=== PATIENT | female | born 1975 | race Caucasian/White ===

== ENCOUNTER 2021-05-14 | Outpatient (REF) | payer BC, SELFPAY | END 2021-05-14 00:01 | disposition home or self-care (01) | LOC: HO.LNP | PROVIDERS: Visit Provider Physician Assistant | DX: Z20.822 Contact with and (suspected) exposure to COVID-19 (principal); R05 Cough; J02.9 Acute pharyngitis, unspecified | CPT/HCPCS: U0003; U0005 ==

== ENCOUNTER 2022-11-05 10:00 | Outpatient (RCR) | payer BC, SELFPAY ==
[2022-11-01 08:05] VITALS: BP 116/59; PULSE 66
--- NOTE | 2022-11-01 08:48 | MHC.PT.EP ---
[facility] [place] Office [place] Office [place] Office [address] Ruben Lua [address] [phone] F: [phone] F: [phone] F: [phone] F: [phone] Physical Therapy Plan of Care Date of Evaluation: Date of Surgery: NA Diagnosis: Vestibular rehab/vertigo Assessment: Adriana is a 47 year old female who is referred to PT for vestibular rehab/ vertigo . She reports of having sudden onset of symptoms of room spinning dizziness about 10 days back. Her symptoms initially got worse and then better. She currently reports of feeling dizzy with walking with head turns. She denies having nausea. On PT examination she presented with intact saccades, smooth pursuit, visual tracking, and negative head thrust. She was positive for upbeating nystagmus in R [place]. She is independent with ADLS and work activities however moves slowly when making turns to avoid dizziness. She would benefit from skilled PT to address the aforementioned impairments and improve tolerance to functional activities. Frequency and Duration: The patient will be seen 2/week for 4 weeks Short Term Goals: Chcf Goals: Patient to be educated on symptoms and indications to return to therapy when needed min 4 weeks. Pt will be negative for nystagmus or reports of vertigo in all diagnostic positions bilaterally to resolution of BPPV in 4 weeks. Patient to be able to functionally move in all planes and directions without provocation of dizziness to show return to PLOF in 4 weeks. Treatment Plan: Modalities to reduce pain, spasms and effusion. Manual therapy to restore motion and function. Therapeutic exercise to improve strength and flexibility. Neuromuscular re-education for posture and balance. Therapeutic activities to return to functional activities of daily living. Electronically signed by: Zuleyka Mensah PT DPT Please sign and return to therapist. Thank you for your referral.
--- NOTE | 2022-12-09 08:29 | MHC.PT.DC ---
[facility] [place] Office [place] Office [place] Office [address] Ruben Lua [address] [phone] F: [phone] F: [phone] F: [phone] F: [phone] Physical Therapy Discharge Report Diagnosis: Vestibular rehab/vertigo Date of Surgery: NA Date of Evaluation: 11/01/22 Date of Discharge: 12/09/22 Treatments to Date: 2 Cancellations to Date: 0 No Shows to Date: Discharge Status: Achieved Goals Improved Function Independent with HEP Discharge Summary: Adriana arrived stating she is feeling better. She reported of feeling off balance for a day after last session however she has been feeling good after. She has had no dizziness since last session. She was assessed in B [place] and B roll test. She was negative for nystagmus and vertigo. Balance was then assessed. She had mod sway with FTEC on airex however had good balance otherwise. She was able to read the chart with DVA however reported of feeling dizzy in the last line. She only presented with mild symptoms of hypofunction. She was therefore sent home with HEP for the same and was advised to return to therapy in case of worsening of symptoms or lack of improvement. Electronically signed by: Zuleyka Mensah PT DPT Please sign and return to therapist. Thank you for your referral.
== END 2022-12-09 08:29 | disposition home or self-care (01) ==
LOC: HO.PT 10:00
PROVIDERS: Visit Provider Otolaryngology
DX: R42 Dizziness and giddiness (principal)
CPT/HCPCS: 95992; 97112; 97161

== ENCOUNTER 2023-11-15 09:50 | Outpatient (AMB) | payer BC, SELFPAY ==
[2023-11-15 10:15] VITALS: BP 126/76; PULSE 74; TEMP 36.8; O2SAT 99; BMI 32.0
--- NOTE | 2023-11-15 10:15 | MHC.OFFWIV ---
Intake Vital Signs 11/15/23 10:15 Height 5 ft 2 in Weight 175 lb BMI 32.0 BP 126/76 Blood Pressure Location Lt brachial Position Sitting Pulse 74 Pulse Source Pulse Oximeter Temp 98.3 F Temp Source Oral Pulse Oximetry (%) 99 Oxygen Delivery Method Room Air Intake Visit Reasons: EP Congestion, Due to cough Chest is hurting Intake Note: pt is here for congestion chest tightness, went to [facility] an was neg for covid and strep Patient Tobacco Use Status: Never used Tobacco Allergies No Known Allergies Allergy (Verified 11/15/23 10:17) Do you need a note to return to daycare/school/sports/work: Yes HPI HPI Comments History of Present Illness Details 48-year-old female who presents for re-evaluation for chest congestion. Patient was recently seen evaluated in the walk-in clinic for sore throat and cough. She tested negative for COVID and strep. Today she felt a little congestion in her chest was unsure if it was due to all the coughing or your if she had something going on with her lungs. Denies any other symptoms such as radiation neck pain or back pain PFSH Social History Patient Tobacco Use Status: Never used Tobacco Physical Exam Vital Signs: Last Vital Signs Temp 98.3 F 11/15/23 10:15 Pulse 74 11/15/23 10:15 BP 126/76 11/15/23 10:15 Pulse Ox 99 11/15/23 10:15 Oxygen Delivery Method Room Air 11/15/23 10:15 BMI result Body Mass Index 32.0 Const General: cooperative, healthy appearing, no acute distress and alert Orientation/consciousness: patient oriented x3 Limitations: no limitations HEENT Head: Yes normal to inspection Ears: hearing grossly normal bilaterally General nose exam: Normal external nose present Resp Effort & Inspection: normal respiratory effort and able to speak in complete sentences Auscultation: clear to auscultation bilaterally Cardio Rate: regular rate Heart sounds: S1 normal heart sound present and S2 normal heart sound present Skin General skin exam: no rashes or lesions noted Neuro General: patient oriented x3 Extrem General: Yes normal to inspection Assessment & Plan Assessment & Plan (1) Chest congestion: Code(s): R09.89 - Other specified symptoms and signs involving the circulatory and respiratory systems Plan: VSs. Exam patient's insulin oriented no acute distress exam unremarkable lung sounds clear to auscultation bilaterally. No concerning findings. Tightness likely musculoskeletal due to cough. Patient will switch to dextromethorphan with guaifenesin. Coding Level of Care Code Est Pt Level 2 (71506) Diagnoses Chest congestion R09.89
== END 2023-11-15 10:55 | disposition home or self-care (01) ==
PROVIDERS: PCP Internal Medicine; Visit Provider Physician Assistant
DX: R09.89 Other specified symptoms and signs involving the circulatory and respiratory systems (principal)
CPT/HCPCS: 99212

== ENCOUNTER 2023-12-06 18:55 | Emergency (ER) | payer BC, SELFPAY ==
--- NOTE | 2023-12-06 | ECG_ITS ---
Test Reason : SYNCOPE Blood Pressure : / mmHG Vent. Rate : 093 BPM Atrial Rate : 093 BPM P-R Int : 148 ms QRS Dur : 082 ms QT Int : 344 ms P-R-T Axes : 058 074 007 degrees QTc Int : 427 ms Normal sinus rhythm Normal ECG No previous ECGs available Referred By: Generic ED Physician Electronically Signed By:TRISTEN COTO MD
--- NOTE | ~2023-12-06 | CT_ITS ---
EXAMINATION: CT ABDOMEN AND PELVIS WITH CONTRAST CLINICAL INFORMATION: Nausea, vomiting and abdominal pain COMPARISON: None available. TECHNIQUE: Multidetector volumetric images were obtained from the superior aspect of the liver through the pubic symphysis following administration 85 mL of Omnipaque 350 intravenous contrast. Sagittal and coronal reformatted images were obtained on the technologist's workstation. Oral contrast: No This CT examination was performed using dose optimization techniques as appropriate, variously including the following: *Automated exposure control *Adjustment of mA and/or kV according to patient size (this includes techniques or standardized protocols for targeted exams where dose is matched to indication/reason for exam; i.e. extremities or head) *Use of iterative reconstruction technique DLP: 808 mGy-cm FINDINGS: LUNG BASES: The visualized lung bases are unremarkable. LIVER, GALLBLADDER, AND BILIARY TREE: The liver is normal in size, shape, and attenuation. No focal hepatic lesion or biliary ductal dilatation is present. Status post cholecystectomy PANCREAS: Unremarkable. SPLEEN: Unremarkable. ADRENAL GLANDS: Unremarkable. KIDNEYS AND URETERS: The kidneys are normal in size, shape, and attenuation. No hydronephrosis, hydroureter, or calculi seen. No perinephric stranding. BLADDER: Unremarkable. GASTROINTESTINAL TRACT: The small bowel are unremarkable. Extensive diverticula seen within the colon without evidence of focal wall thickening or inflammatory stranding to suggest acute diverticulitis. The appendix is unremarkable. ABDOMINAL WALL: There is a small fat-containing left inguinal hernia LYMPH NODES: Normal. VASCULAR: Unremarkable. PELVIC VISCERA: Hypodense nodule within the uterus likely representing fibroid. OSSEOUS STRUCTURES: Unremarkable. CT/CT abdomen pelvis w IV con IMPRESSION: 1. No acute process. 2. Extensive diverticulosis without evidence of acute diverticulitis. 3. Small fat-containing left inguinal hernia.
[2023-12-06 18:58] VITALS: BP 101/58; BP 84/40; PULSE 73; PULSE 81; RESP 16; TEMP 37.1; O2SAT 98; BMI 32.6
[2023-12-06 19:33] LABS: MANUAL DIFF FLAG NO
[2023-12-06 19:34] LABS: Basophils Percent Auto 0.1 % (0-2); Eosinophils Absolute Auto 0.1 X10*3/uL (0.0-0.4); Eosinophils Percent Auto 0.7 % (0-4); Hematocrit 40.9 % (37.0-47.0); Hemoglobin 13.9 g/dl (12.0-16.0); Imm Gran Abs Auto 0.03 X10*3/uL (0.00-0.03); Imm Gran Pct Auto 0.3 % (0.0-0.4); Lymphocytes Absolute Auto 0.5 X10*3/uL (1.2-4.9); Lymphocytes Percent Auto 5.6 % (20-40); Mean Corpuscular Hemoglobin 29.6 pg (27.0-33.0); Mean Corpuscular Volume 87.2 fL (80.0-98.0); Mean Platelet Volume 8.3 fL (9.4-12.3); Monocytes Absolute Auto 0.5 X10*3/uL (0.1-1.2); Monocytes Percent Auto 5.7 % (2-11); Neutrophils Absolute Auto 7.6 x10*3/uL (2.0-8.3); Neutrophils Percent Auto 87.6 % (45-73); Platelet Count 252 X10*3/uL (160-400); Red Blood Count 4.69 X10*6/uL (4.20-5.50); Red Cell Distribution Width 12.5 % (11.0-16.0); White Blood Count 8.6 X10*3/uL (4.8-10.8)
--- NOTE | 2023-12-06 19:37 | ED_ITS ---
HPI - Nausea/Vomiting/Diarrhea General Chief complaint: Syncope Stated complaint: Syncope, vomiting, diarrhea, sinus rhythm Time Seen by Provider: 12/06/23 19:23 History of Present Illness HPI Narrative: Patient is a 48-year-old female with a history of nausea, vomiting, diarrhea for the last several hours. 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 Family member also have similar symptoms. Was laying on the couch when she tries to go to the bathroom sitting on the toilet she got very lightheaded. Then had a syncopal episode. When EMS arrived she had a very lightheaded and then had another episode of syncope. There is no chest pain feels very cold very diaphoretic. The vomiting was mostly food. The diarrhea was mostly brown in color. There is no blood. There is no chest pain. There is no history of diabetes, hypertension, high cholesterol, smoking, mi. No family history of coronary artery disease. Patient is from home. Related Data Home Medications ?Medication ?Instructions ?Recorded ?Confirmed levothyroxine 50 mcg tablet 50 mcg PO DAILY 05/14/21 09/28/22 naproxen 500 mg tablet 500 mg PO BID 11/15/23 sertraline 50 mg tablet 50 mg PO DAILY 11/15/23 Previous Rx's ?Medication ?Instructions ?Recorded ondansetron 4 mg disintegrating 4 mg PO TID PRN nausea and 12/07/23 tablet vomiting 5 days #10 tabs Allergies Allergy/AdvReac Type Severity Reaction Status Date / Time No Known Allergies Allergy Verified 12/06/23 19:13 Review of Systems 2 Review of Systems: Positive nausea vomiting diarrhea Yes all other systems are reviewed and are negative [facility] Past Medical History Attestation statement: The following information was validated with the patient. Social History Social History Patient Tobacco Use Status: Never used Tobacco Smoked in Last 30 Days: No Use of substances other than those prescribed or required for medical reasons: No Advance Directives: No Advance Directives Information Provided: Yes Patient : No Physical Exam 2 Vital Signs: Vital Signs: Last Vital Signs Temp 98.7 F 12/06/23 22:02 Pulse 84 12/06/23 22:02 Resp 16 12/06/23 22:02 BP 139/82 12/06/23 22:02 Pulse Ox 99 12/06/23 22:02 O2 Del Method Room Air 12/06/23 22:02 BMI result Body Mass Index 32.6 Appearance: Alert. Oriented X3. No acute distress. Eyes: Pupils equal, round and reactive to light. ENT: Pharynx normal. Neck: Normal inspection. Neck supple. No lymph nodes noted. No crepitus CVS: Normal heart rate and rhythm. Pulses normal. Normal S1 and S2 Respiratory: No respiratory distress. Breath sounds normal. No Wheezing. No rales Abdomen: Soft and nontender. No rigidity. No distention. good BS x4 Skin: Skin warm and dry. Normal skin color. Normal skin turgor. Extremities: No lower extremity edema. Neurovascular intact to all extremities. No Lacerations. No Rash Neuro: Oriented X 3. No motor deficit. No sensory deficit. Moving all extermities. No slurred speech Medications Administered Discontinued Medications Generic Name Dose Route Start Last Admin Trade Name Freq PRN Reason Stop Dose Admin Sodium Chloride 1,000 mls @ 999 mls/hr 12/06/23 19:45 12/06/23 20:55 Ns IV 12/06/23 20:45 Infused .Q1H1M HOME Infusion Iohexol 85 ml 12/06/23 21:33 12/06/23 21:34 Iohexol 350 Mg/Ml 100 Ml Infus..Btl IV 12/06/23 21:34 85 ml ONCE ONE Administration Ketorolac Tromethamine 15 mg 12/06/23 19:36 12/06/23 19:53 Ketorolac Tromethamine 15 Mg/Ml Vial IVPUSH 12/06/23 19:37 15 mg ONCE ONE Administration Ondansetron HCl 4 mg 12/06/23 19:36 12/06/23 19:53 Ondansetron Hcl 4 Mg/2 Ml Vial IVPUSH 12/06/23 19:37 4 mg ONCE ONE Administration Ondansetron HCl 4 mg 12/06/23 23:33 12/06/23 23:38 Ondansetron Hcl 4 Mg/2 Ml Vial IVPUSH 12/06/23 23:34 4 mg ONCE ONE Administration Medical Decision Making Medical Decision Making [facility] Narrative: My interpretation patient's EKG showed a sinus rhythm heart rate is 90 WI QRS QTC within normal limits is no acute ST segment elevation noted. Patient given IV fluids here in the emergency department. Toradol for pain. Zofran for nausea. Symptomatically feels much improved. Patient's labs showed a normal white count. A slight left shift. Patient's LFTs are normal. Troponin less than 2.7 patient's symptoms started after nausea vomiting diarrhea. Dehydration. Urine showed no signs of infection. CT scan was reviewed by Radiology grossly there has no evidence of obstruction no abscess no perforation. Patient's EKG showed a sinus rhythm heart rate is 90 WI QRS QTC within normal limits is no acute ST segment elevation. In this setting patient's episodes of passing out most likely vasovagal. Will ask patient to hydrate. Close follow-up on an outpatient basis. Zofran for nausea. Tolerated p.o. in the emergency department. Differential Diagnosis Differential Diagnoses: The differential diagnosis associated with the presentation includes Gastroenteritis, vasovagal, syncope, abdominal pathology Admission/Observation Consideration of admission/observation: Escalation of care including admission/observation considered Lab Data MDM Lab Attestation statement: I reviewed the patient's lab results. 12/06/23 19:22 12/06/23 19:22 Labs: Lab Results 12/06/23 12/06/23 Range/Units 19:22 20:47 WBC 8.6 (4.8-10.8) X10*3/uL RBC 4.69 (4.20-5.50) X10*6/uL Hgb 13.9 (12.0-16.0) g/dl Hct 40.9 (37.0-47.0) % MCV 87.2 (80.0-98.0) fL MCH 29.6 (27.0-33.0) pg MCHC 34.0 (31.0-35.0) g/dl RDW 12.5 (11.0-16.0) % Plt Count 252 (160-400) X10*3/uL MPV 8.3 L (9.4-12.3) fL Immature Gran % (Auto) 0.3 (0.0-0.4) % Neut % (Auto) 87.6 H (45-73) % Lymph % (Auto) 5.6 L (20-40) % [place] % (Auto) 5.7 (2-11) % Eos % (Auto) 0.7 (0-4) % Baso % (Auto) 0.1 (0-2) % Lymph # (Auto) 0.5 L (1.2-4.9) X10*3/uL [place] # (Auto) 0.5 (0.1-1.2) X10*3/uL Eos # (Auto) 0.1 (0.0-0.4) X10*3/uL Baso # (Auto) 0.0 (0.0-0.2) X10*3/uL Abs Immat Gran (auto) 0.03 (0.00-0.03) X10*3/uL Absolute Neuts (auto) 7.6 (2.0-8.3) x10*3/uL Absolute Nucleated RBC 0.000 (0.0-0.012) X10*3/uL Nucleated RBC % (auto) 0.0 (0.0-0.2) /100WBC Sodium 141 (135-145) mmol/L Potassium 4.1 (3.3-5.1) mmol/L Chloride 112 H (96-108) mmol/L Carbon Dioxide 22 (22-29) mmol/L Anion Gap 11 L (12-20) BUN 14 (9-16) mg/dL Creatinine 0.67 (0.5-1.4) mg/dL Estim Creat Clear Calc 102.2 Estimated GFR > 60 Random Glucose 146 H (60-115) mg/dL Lactic Acid 1.3 (0.5-2.0) mmol/L Calcium 8.4 (8.4-10.2) mg/dL Total Bilirubin 0.5 (0.0-1.0) mg/dL Direct Bilirubin 0.2 (0.0-0.5) mg/dL AST 19 (5-31) U/L ALT 24 (0-31) U/L Alkaline Phosphatase 76 (39-117) U/L Troponin I High Sens < 2.7 (<3.5-17.0) ng/L Total Protein 6.4 L (6.5-8.0) g/dL Albumin 3.9 (3.5-5.0) g/dL Lipase 32 (8-78) U/L Urine Color Yellow Urine Appearance Clear Urine pH 5.5 (5.0-9.0) Ur Specific [place] 1.010 (1.005-1.025) Urine Protein Negative (Neg-Trace) mg/dL Urine Glucose (UA) Negative (Negative) mg/dL Urine Ketones Negative (Negative) mg/dL Urine Blood Negative (Negative) Urine Nitrite Negative (Negative) Ur Leukocyte Esterase Negative (Negative) Urine RBC 0-2 (0-2) /HPF Urine WBC 0-5 (0-5) /HPF Ur Squamous Epith Cells 0-2 (0-2) /HPF Urine Bacteria None Seen (None Seen) Hyaline Casts 0-2 (0-2) /LPF Urine Test NEGATIVE (NEGATIVE) Influenza Type A (PCR) NEGATIVE (Negative) Influenza Type B (PCR) NEGATIVE (Negative) RSV RNA Qual (PCR) NEGATIVE (Negative) SARS-CoV-2 RNA (RT-PCR) NEGATIVE (Negative) Independent Interpretation I performed an independent interpretation of an: EKG (Sinus heart rate is 90 WI QRS QTC within normal limits is no acute ST segment elevation noted.) and CT Scan (Grossly negative for obstruction) Radiology Impression Discussion of test interpretation with radiology: I have reviewed the radiologist's reading. Independent Historian Clinical information obtained from an independent historian. History obtained from or confirmed by: Spouse Discharge Plan Discharge Clinical Impression: Vasovagal syncope, Gastroenteritis Patient Disposition: Home, Self-Care Instructions: Syncope (ED), Gastroenteritis (DC) Prescriptions: New ondansetron 4 mg tablet,disintegrating 4 mg PO TID PRN (Reason: nausea and vomiting) 5 Days Qty: 10 0RF No Action levothyroxine 50 mcg tablet 50 mcg PO DAILY naproxen 500 mg tablet 500 mg PO BID sertraline 50 mg tablet 50 mg PO DAILY Referrals: Jesús Knott MD [Primary Care Provider] - 12/09/23 Print Language: Czech
[2023-12-06 19:46] LABS: Lactic Acid 1.3 mmol/L (0.5-2.0)
[2023-12-06 19:50] LABS: Alanine Aminotransferase 24 U/L (0-31); Albumin Level 3.9 g/dL (3.5-5.0); Alkaline Phosphatase 76 U/L (39-117); Anion Gap 11 (12-20); Aspartate Amino Transferase 19 U/L (5-31); Bilirubin Direct 0.2 mg/dL (0.0-0.5); Bilirubin Total 0.5 mg/dL (0.0-1.0); Blood Urea Nitrogen 14 mg/dL (9-16); Calcium 8.4 mg/dL (8.4-10.2); Carbon Dioxide 22 mmol/L (22-29); Chloride 112 mmol/L (96-108); Creatinine Clr Calc Pharmacy 102.2; Estimated Glomerular Filt Rate > 60; Glucose Random 146 mg/dL (60-115); Lipase 32 U/L (8-78); Potassium 4.1 mmol/L (3.3-5.1); Sodium 141 mmol/L (135-145); Total Protein 6.4 g/dL (6.5-8.0)
[2023-12-06 19:51] VITALS: BP 119/78; PULSE 90; RESP 16; TEMP 37.1; O2SAT 97
[2023-12-06] MEDS: 0.9 % Sodium Chloride 1,000 ML 999 ML IV (19:53)
[2023-12-06] MEDS: ondansetron HCL 4 MG/2 ML VIAL IVPUSH ×2 (19:53→23:38)
[2023-12-06] MEDS: Ketorolac Tromethamine 15 MG/ML VIAL IVPUSH (19:53)
[2023-12-06 19:58] LABS: Troponin-I High Sensitivity < 2.7 ng/L (<3.5-17.0)
[2023-12-06 20:13] LABS: Influenza A PCR NEGATIVE (Negative); Influenza B PCR NEGATIVE (Negative); Resp Syncy Virus RNA Qual PCR NEGATIVE (Negative); SARS COV2 PCR INHOUSE NEGATIVE (Negative)
[2023-12-06 20:54] LABS: Appearance Urine Clear; Color Urine Yellow; Glucose Urine UA Negative (Negative); Leukocyte Esterase Urine Negative (Negative); Nitrite Urine Negative (Negative); PH 5.5 (5.0-9.0); Urine Blood Negative (Negative); Urine Ketones Negative (Negative); Urine Protein Negative (Neg-Trace)
[2023-12-06 20:55] LABS: UPreg QC Valid YES; Urine Pregnancy NEGATIVE (NEGATIVE)
[2023-12-06 20:56] LABS: Bacteria Urine None Seen (None Seen); Hyaline Casts Urine 0-2 /LPF (0-2); RBC Urine 0-2 /HPF (0-2); Squamous Epithelial Cell Urine 0-2 /HPF (0-2); WBC Urine 0-5 /HPF (0-5)
[2023-12-06 21:15] VITALS: PULSE 88
[2023-12-06 21:16] VITALS: O2SAT 98
[2023-12-06] MEDS: iohexoL 350 MG/ML 100 ML INFUS..BTL 85 ML IV (21:34)
[2023-12-06 22:02] VITALS: BP 139/82; PULSE 84; RESP 16; TEMP 37.1; O2SAT 99
--- NOTE | 2023-12-06 23:31 | PC.NURSE ---
Patient reports feeling nauseous with 1 episode of vomiting. Patient requesting to be medicated. Dr. Webster informed, verbal order received for Zofran 4 mg IV push.
--- NOTE | 2023-12-06 23:39 | PC.NURSE ---
Patient medicated per MAR.
[2023-12-07 01:50] VITALS: BP 129/76; PULSE 89; RESP 16; TEMP 36.8; O2SAT 98
== END 2023-12-07 01:52 | disposition home or self-care (01) ==
PROVIDERS: Emergency Provider Emergency Medicine Emergency Medical Services; PCP Internal Medicine
DX: K52.9 Noninfective gastroenteritis and colitis, unspecified (principal); R55 Syncope and collapse; R11.2 Nausea with vomiting, unspecified; Z03.818 Encounter for observation for suspected exposure to other biological agents ruled out; Z79.899 Other long term (current) drug therapy
CPT/HCPCS: 0241U; 36415; 74177; 80053; 81001; 81025; 82248; 83605; 83690; 84484; 85025; 93005; 96361; 96374; 96376; 99284; 99285; J1885; J2405; Q9967

== ENCOUNTER → 2023-12-06 19:19 | Outpatient (BNV) | payer BC, SELFPAY | PROVIDERS: Emergency Provider Emergency Medicine Emergency Medical Services; PCP Internal Medicine; Visit Provider Internal Medicine Cardiovascular Disease | DX: R55 Syncope and collapse (principal) | CPT/HCPCS: 93010 ==

== ENCOUNTER 2024-12-27 09:07 | Outpatient (REF) | payer BC, SELFPAY ==
--- NOTE | ~2024-12-27 | XR_ITS ---
CLINICAL HISTORY: bilateral knee pain Left knee two views Comparison: None Findings: No acute fracture or dislocation noted. No significant joint effusion identified. Chondrocalcinosis consistent with CPPD. No soft tissue foreign body. Impression: CPPD without acute process Right knee two views Comparison: None Findings: No acute fracture or dislocation noted. No significant joint effusion identified. Chondrocalcinosis consistent with CPPD. No soft tissue foreign body. Impression: CPPD without acute process This document has been electronically signed by: Piter Hale MD on 12/29/2024 19:32:39
--- OUTSIDE RECORDS SUMMARY | 2024-12-27 12:38 | XMS_ITS | Clinical Summary ---
Author Organization [facility] Address [address] [place] [address] Phone Care Team Providers Care Director Of Regional Sales Name Role Phone Jesús Knott MD Primary Care Provider [phone] Allergies Active Allergy Reactions Criticality Noted Date Comments Other Hives 03/25/2017 [place] powder Medications diclofenac (VOLTAREN) 1 % topical [...] CHOLECYSTECTOMY COLONOSCOPY 03/25/2017 PROCEDURE: HISTORICAL COLONOSCOPY; COMMENT: choen colonic diverticulosis and hemorhhoids; repeat in 10 [...] care for your loved ones. For example, child care team lead or elderly care for an older adult? [...] Signed Date: 07/28/2024 11:43 ET Workstation ID: [id number] Transcribed By: Self Edit Transcribed Date: 07/28/2024 [...] None Computer-aided detection was employed with the [employer] AI 3-D. TISSUE DENSITY: There are scattered [...] Signed Date: 07/28/2024 11:43 ET Workstation ID: [id number] Transcribed By: Self Edit Transcribed Date: 07/28/2024 11:36 ET us Self Referral Sppl IMG BI PROCEDURES Final Resul t * Lipid panel with reflex to direct LDL (07/06/2024 11:04 AM EST) Cholesterol 151 0 - 200 mg/dL LAB CHEMISTRY METHOD 07/06/2024 3:23 PM EST [facility] Triglycerides 59 0 - 150 mg/dL LAB CHEMISTRY METHOD 07/06/2024 3:23 PM EST [facility] HDL 75 >=40 mg/dL LAB CHEMISTRY METHOD 07/06/2024 3:23 PM [facility] LDL Calculated 64 0 - 100 mg/dL LAB CHEMISTRY METHOD 07/06/2024 3:23 PM [facility] VLDL Cholesterol Nik 11.8 mg/dL LAB CHEMISTRY METHOD 07/06/2024 3:23 PM [facility] Non HDL Chol. (LDL+VLDL) 76 <145 mg/dL LAB CHEMISTRY METHOD 07/06/2024 3:23 PM [facility] Chol/HDL Ratio 2.0 0.0 - 4.4 LAB CHEMISTRY METHOD 07/06/2024 3:23 PM [facility] Blood Venous blood specimen / Unknown Venipuncture / Unknown 07/06/2024 11:04 AM EST 07/06/2024 11:04 AM EST [facility] BLOOD ORDERABLES Fin al Result [facility] [address] [place] [address], * Pap Smear (01/29/2023) Pap smear no interpretation , abstracted Historical Provider HEALTH MAINTENANCE Final Result from Last 3 Months or Most Recently Relevant to Health Maintenance Insurance [facility] Care Teams Director Of Regional Sales Relationship Specialty Start Date End Date Jesús Knott MD [address] [place] [address] PCP - General 03/18/07
[2024-12-27 13:01] LABS: MANUAL DIFF FLAG NO
[2024-12-27 13:23] LABS: Basophils Percent Auto 0.6 % (0-2); Eosinophils Absolute Auto 0.1 X10*3/uL (0.0-0.4); Eosinophils Percent Auto 1.5 % (0-4); Hemoglobin 13.4 g/dl (12.0-16.0); Lymphocytes Absolute Auto 1.6 X10*3/uL (1.2-4.9); Lymphocytes Percent Auto 33.9 % (20-40); Mean Corpuscular HGB Conc 34.4 g/dl (31.0-35.0); Mean Corpuscular Volume 87.4 fL (80.0-98.0); Mean Platelet Volume 8.7 fL (9.4-12.3); Monocytes Absolute Auto 0.4 X10*3/uL (0.1-1.2); Monocytes Percent Auto 7.4 % (2-11); Neutrophils Absolute Auto 2.7 x10*3/uL (2.0-8.3); Neutrophils Percent Auto 56.6 % (45-73); Platelet Count 299 X10*3/uL (160-400); Red Blood Count 4.46 X10*6/uL (4.20-5.50); Red Cell Distribution Width 12.6 % (11.0-16.0); White Blood Count 4.8 X10*3/uL (4.8-10.8)
[2024-12-27 13:32] LABS: Alanine Aminotransferase 24 U/L (0-31); Albumin Level 4.2 g/dL (3.5-5.0); Alkaline Phosphatase 111 U/L (39-117); Anion Gap 11 (12-20); Aspartate Amino Transferase 22 U/L (5-31); Bilirubin Direct 0.1 mg/dL (0.0-0.5); Bilirubin Total 0.3 mg/dL (0.0-1.0); Blood Urea Nitrogen 11 mg/dL (9-16); Calcium 9.1 mg/dL (8.4-10.2); Carbon Dioxide 26 mmol/L (22-29); Chloride 109 mmol/L (96-108); Cholesterol 162 mg/dL (<200); Estimated Glomerular Filt Rate > 60; Glucose Fasting 92 mg/dL (60-99); HDL Cholesterol 65 mg/dL (>40); LDL Cholesterol Calculated 86 mg/dL (<100); Phosphorus 3.3 mg/dL (2.7-4.5); Potassium 4.1 mmol/L (3.3-5.1); Sodium 142 mmol/L (135-145); Total Protein 6.7 g/dL (6.5-8.0); Triglycerides 58 mg/dL (<150)
[2024-12-27 13:50] LABS: TSH reflex Free T4 1.61 uIU/mL (0.32-4.0); Vitamin D 25-OH Total 32.9 ng/mL (>30)
[2024-12-27 13:54] LABS: Parathyroid Hormone Intact 80.9 pg/mL (8.7-77.1)
[2024-12-27 13:57] LABS: Folate 9.9 ng/mL (> or = 4.0); Vitamin B12 287 pg/mL (200-900)
[2024-12-27 14:07] LABS: Estimated Average Glucose 103 mg/dL; Hemoglobin A1C 119.5172 umol/L; Hemoglobin A1c % 5.2 % (<6.0); Total Hemoglobin (HGBA1C) 3530.9446 umol/L
[2024-12-27 14:14] LABS: Erythrocyte Sedimentation Rate 8 MM/HR (0-20)
[2024-12-28 04:03] LABS: Prolactin 5.6 ng/mL
[2024-12-31 14:43] LABS: Testosterone, Total 15 ng/dL (2-45)
[2024-12-31 15:30] LABS: Estrogen 85 pg/mL
[2025-01-11 18:58] LABS: Progesterone <0.1 ng/mL
== END 2024-12-27 09:08 | disposition home or self-care (01) ==
LOC: HO.HMGCX 09:07
PROVIDERS: PCP Internal Medicine; Visit Provider Physician Assistant Medical
DX: Z76.89 Persons encountering health services in other specified circumstances (principal); H81.10 Benign paroxysmal vertigo, unspecified ear; E55.9 Vitamin D deficiency, unspecified; F32.A Depression, unspecified; F41.9 Anxiety disorder, unspecified; R01.1 Cardiac murmur, unspecified; M72.2 Plantar fascial fibromatosis; M25.561 Pain in right knee; M25.562 Pain in left knee; E03.9 Hypothyroidism, unspecified; E66.811 Obesity, class 1; G56.00 Carpal tunnel syndrome, unspecified upper limb; R51.9 Headache, unspecified; Z00.00 Encounter for general adult medical examination without abnormal findings; Z13.1 Encounter for screening for diabetes mellitus
CPT/HCPCS: 36415; 73564; 80053; 80061; 80076; 82248; 82306; 82607; 82672; 82746; 83036; 83735; 83970; 84100; 84144; 84146; 84403; 84443; 85025; 85652; 86140; 96127

== ENCOUNTER 2024-12-27 09:07 | Outpatient (AMB) | payer BC, SELFPAY ==
--- NOTE | 2024-12-27 09:21 | A.OFFPC_ITS ---
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: No Accompanied by: Spouse Allergies No Known Allergies Allergy (Verified 12/27/24 10:13) Medication List - Last Reconciled 12/27/24 by Marita Rios PA-C levothyroxine 50 mcg PO DAILY sertraline 50 mg PO DAILY Tobacco use date assessed: 12/27/24 Dental Screening Dental Screen Date: 12/27/24 Did you have a dental visit in the last 12 months?: Yes Did you have a dental problem in the last 6 months where you did not have access to dental care?: No Was dental information given to patient?: Patient has dentist HPI establish care HPI Details The patient is a 49-year-old female presenting establish a new primary care provider for a medication refill, blood work, and evaluation for multiple chronic conditions. She is currently managing anxiety and depression with sertraline and has hypothyroidism managed with levothyroxine. The patient reports episodic vertigo and sinus headaches, both of which are managed with [id number] medications as needed. She has a noted vitamin D deficiency. She underwent eye duct surgery previously and is aware of her family history of breast cancer, attending yearly mammography screenings. A colonoscopy was conducted within the past five years. The patient mentions diverticulitis and osteoarthritis of the knee, the latter of which shows a potential need for evaluation. Plantar fasciitis and slight carpal tunnel syndrome are also noted, both managed conservatively. There is a family history of glaucoma. 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 - Reports high activity level with appro ximately 10,000 steps per day. - Lives with her , mentioned freq uent participation in physical activities like pickleball. - Resides close to the medical facility. [facility] Medical History Carpal tunnel syndrome History of mammogram (~06/2024) Hypothyroidism (acquired) Obesity (BMI 30.0-34.9) Bilateral knee pain Plantar fasciitis Heart murmur Establishing care with new doctor, encounter for Anxiety Depression Vitamin D deficiency Surgical History History of colonoscopy Family History Father High cholesterol Mother Breast cancer BP (high blood pressure) Diabetes Social History Housing: House Alcohol intake: current Alcohol intake frequency: holidays/special occasions only Alcohol type: beer and wine Patient Tobacco Use Status: Never used Tobacco e-Cigarette/Vaping Use: Never Used Second Hand Smoke Exposure: No service: No Current occupational status: employed Cognitive needs: No Hearing needs: No Vision needs: No Questionnaire PHQ-9 Over the last 2 weeks, how often have you been bothered by any of the following problems? 1. Little interest or pleasure in doing things: not at all 2. Feeling down, depressed, or hopeless: not at all 3. Trouble falling or staying asleep, or sleeping too much: not at all 4. Feeling tired or having little energy: not at all 5. Poor appetite or overeating: not at all 6. Feeling bad about yourself - or that you are a failure or have let yourself or your family down: not at all 7. Trouble concentrating on things, such as reading the newspaper or watching television: not at all 8. Moving or speaking so slowly that other people could have noticed. Or the opposite - being so fidgety or restless that you have been moving around a lot more than usual: not at all 9. Thoughts that you would be better off or of hurting yourself in some way: not at all Total score: 0 Depression Screening Interpretation: Negative Depression Screening Done: Yes 60433 - PHQ-9 Billing: Yes Source: Developed by Drs. Enmanuel Allan, Mercy Nuñez, Mariano Nguyen and colleagues, with an educational kim from [employer]. Thrive Questionnaire Date Thrive assessed: 12/27/24 I am a: Patient What is your living situation today?: I have a steady place to live Within the past 12 months, did the food you bought not last and you didn't have the money to get more?: Never true Within the past 12 months, did you worry whether your food would run out before you got money to buy more?: Never true Do you have trouble paying for medicines?: No Do you have trouble getting transportation to medical appointments?: No Do you have trouble paying your heating and electricity bill?: No Do you have trouble taking care of your child, family member or friend?: No Do you have trouble with day-to-day activities such as bathing, preparing meals, shopping, managing finances, etc.?: No Are you currently unemployed and looking for a job?: No Are you interested in more education?: No Please select the resources that you would like help with: None THRIVE Score: 0 AUDIT C Alcohol Use Questionnaire (AUDIT-C) 1. How often do you have a drink containing alcohol?: Monthly or less 2. How many drinks containing alcohol do you have on a typical day when you are drinking?: 1 or 2 3. How often do you have six or more drinks on one occasion?: Never Total Score: 1 Score Reviewed/Action Taken: No ANGEL LUIS-7 AMB Questionnaire ANGEL LUIS-7 Date ANGEL LUIS - 7 assessed: 12/27/24 Feeling nervous, anxious, or on edge: 0 = Not at all Not being able to stop or control worryin = Not at all Worrying too much about different things: 0 = Not at all Trouble relaxin = Not at all Being so restless that it is hard to sit still: 0 = Not at all Becoming easily annoyed or irritable: 0 = Not at all Feeling afraid as if something awful might happen: 0 = Not at all Total ANGEL LUIS-7 score (0-4 normal; 5-9 mild; 10-14 moderate; 15-21 severe): 0 Source: Developed by Drs. Enmanuel Allan, Mercy Nuñez, Mariano Nguyen and colleagues, with an educational kim from [employer]. ANGEL LUIS-7 Assessment Billing ANGEL LUIS-7 Assessment Tool: ANGEL LUIS-7 Assessment 10872 Review of Systems Const Details: - Psychiatric: Reports anxiety and depression, managed with sertraline. - Endocrine: Reports hypothyroidism, managed with levothyroxine. - Neurological: Reports episodic vertigo; denies current symptoms. - Head and Neck: Reports sinus headaches during seasonal changes. - Musculoskeletal: Reports plantar fasciitis and knee pain. - Skin: Denies any unusual skin findings or changes. - HEENT: Post eye duct surgery, reports no current issues. - Gastrointestinal: History of diverticulitis; denies any current abdominal pain. - Family History: Positive for breast cancer and glaucoma; no colon cancer reported. Physical exam (Primary Care) Vital Signs: Last Vital Signs Temp 97.8 F 12/27/24 09:32 Pulse 68 12/27/24 09:32 Resp 14 12/27/24 09:32 BP 119/56 L 12/27/24 09:32 Pulse Ox 97 12/27/24 09:32 Oxygen Delivery Method Room Air 12/27/24 09:32 Care Plan Goal for BP management: <130/90 at Goal BMI result Body Mass Index 34.0 BMI Assessment/Plan discussion: High BMI High, discussed plan: lifestyle, weight reduction, dietary, physical activity and alcohol moderation Tobacco/Smoking Status: Tobacco use Status Tobacco use date assessed 12/27/24 12/27/24 09:23 Patient Tobacco Use Status Never used Tobacco 12/27/24 09:23 e-Cigarette/Vaping Use Never Used 12/27/24 10:22 PHQ-9: PHQ-9 Score PHQ-9: Total score 0 12/27/24 09:55 Depression Screening Interpretation: Negative Thrive Assessment: Date of Thrive Assessment Date Thrive assessed 12/27/24 12/27/24 09:23 Const Other: Appearance: Alert. Oriented X3. No acute distress. Head: Normal external exam. Normocephalic. Atraumatic. Eyes: Pupils are equal, round, and reactive to light. Extraocular movements intact. Conjunctiva and sclera normal. Eyelids normal. Post-surgery for blocked ducts, now open and draining properly. Ears: External auditory canal normal. Tympanic membranes normal. Throat: Pharynx normal. Uvula midline. Moist mucous membranes. Neck: Normal inspection. Neck supple. Full range of motion. No adenopathy. Thyroid Normal. No meningeal signs. No neck mass noted. Cardiovascular: Normal heart rate and rhythm. Heart sound normal. Slight murmur noted. Pulses normal throughout. Respiratory: No respiratory distress. Painless inspiration. Breath sounds normal. No wheezes/rales/rhonchi noted. Chest nontender. No accessory muscle usage noted or decreased air movement noted. Abdomen: Soft and nontender. Bowel sounds normal in all 4 quadrants. No distention noted. No organomegaly noted. No visible injury noted. Back: No costovertebral angle tenderness. Full range of motion noted. Skin: Skin warm and dry. Normal skin color. Normal skin turgor. No rashes/lesions/lacerations noted. Extremities: No lower extremity edema. Extremities exhibit normal range of motion. Extremities nontender. Reports plantar fasciitis and knee pain, especially on the right side. Neuro: Oriented X 3. No motor deficit. No sensory deficit. Reflexes normal. Reports history of vertigo, currently not present. Slight carpal tunnel syndrome noted, especially in the right hand. Results Reviewed Results Reviewed: - Labs: Previous labs indicate low vitamin D levels. - Imaging: Colonoscopy performed within the last five years at [facility]. - Screening: Mammogram in June 2023; annual since age 31. - Other Tests: Eye duct surgery performed; no current blockage noted. Coding Level of Care Code New Pt Level 4 (55462) Complex EM visit Add On G2211 Diagnoses Establishing care with new doctor, encounter for Z76.89 BPPV (benign paroxysmal positional vertigo) H81.10 Vitamin D deficiency E55.9 Depression F32.A Anxiety F41.9 Heart murmur R01.1 Plantar fasciitis M72.2 Bilateral knee pain M25.561; M25.562 Hypothyroidism (acquired) E03.9 Obesity (BMI 30.0-34.9) E66.811 Carpal tunnel syndrome G56.00 Additional Codes ANGEL LUIS-7 Assessment Billing - ANGEL LUIS-7 Assessment Tool: ANGEL LUIS-7 Assessment 66542 ([id number]) PHQ-9 - 50339 - PHQ-9 Billing: Yes ([id number]) Assessment & Plan Assessment & Plan (1) Establishing care with new doctor, encounter for: Code(s): Z76.89 - Persons encountering health services in other specified circumstances Category: Medical (2) BPPV (benign paroxysmal positional vertigo): Code(s): H81.10 - Benign paroxysmal vertigo, unspecified ear Category: Medical Plan: Episodic management with meclizine deemed acceptable, no medical prescriptions were deemed necessary. Condition is chronic and stable continue to monitor. (3) Vitamin D deficiency: Code(s): E55.9 - Vitamin D deficiency, unspecified Category: Medical Plan: Vitamin D supplementation and the pursuit of a practical procurement strategy was encouraged. Condition is chronic and stable continue to monitor. (4) Depression: Code(s): F32.A - Depression, unspecified Category: Medical Plan: Continued monitoring and management with sertraline was agreed upon. She maintains regular psychiatric follow-ups in [place] with Dr. Simpson. Will obtain medical records. Condition is chronic and stable continue to monitor. (5) Anxiety: Code(s): F41.9 - Anxiety disorder, unspecified Category: Medical Plan: Continued monitoring and management with sertraline was agreed upon. She maintains regular psychiatric follow-ups in [place] with Dr. Simpson. Will obtain medical records. Condition is chronic and stable continue to monitor. (6) Heart murmur: Code(s): R01.1 - Cardiac murmur, unspecified Category: Medical Plan: Patient possible heart murmur on exam. Will order echocardiogram. Will continue to monitor. (7) Plantar fasciitis: Code(s): M72.2 - Plantar fascial fibromatosis Category: Medical Plan: Conservative approaches validated, avoiding invasive intervention per current patient comfort. Condition is chronic and stable continue to monitor. (8) Bilateral knee pain: Code(s): M25.561 - Pain in right knee; M25.562 - Pain in left knee Category: Medical Plan: X-ray referral for further evaluation of knee pain, given family osteoarthritis history. Condition is chronic and stable continue to monitor. (9) Hypothyroidism (acquired): Code(s): E03.9 - Hypothyroidism, unspecified Category: Medical Plan: Maintained on levothyroxine, with ordered thyroid function test to ensure current dosage sufficiency. Condition is chronic and stable will continue to monitor. (10) Obesity (BMI 30.0-34.9): Code(s): E66.811 - Obesity, class 1 Category: Medical Plan: Patient to improve her diet and exercise regimen. Condition is chronic and stable continue to monitor. (11) Carpal tunnel syndrome: Code(s): G56.00 - Carpal tunnel syndrome, unspecified upper limb Category: Medical Plan: Symptom management with wrist brace continued, with no surgical plans at present. Condition is chronic and stable continue to monitor. Plan Plan Patient was informed and verbally consented to the use of an ambient scribe for clinic note documentation during this visit. 1. Depression And Anxiety Continued monitoring and management with sertraline was agreed upon. She maintains regular psychiatric follow-ups in [place]. 2. Hypothyroidism Maintained on levothyroxine, with ordered thyroid function test to ensure current dosage sufficiency. 3. Vertigo Episodic management with meclizine deemed acceptable, no medical prescriptions were deemed necessary. 4. Sinus Headaches Conformance with Tylenol Sinus for headache relief was affirmed, noting previous sedative reactions. 5. Vitamin D Deficiency Vitamin D supplementation and the pursuit of a practical procurement strategy was encouraged. 6. Osteoarthritis Of The Knee X-ray referral for further evaluation of knee pain, given family osteoarthritis history. 7. Plantar Fasciitis Conservative approaches validated, avoiding invasive intervention per current patient comfort. 8. Carpal Tunnel Syndrome, Slight Symptom management with wrist brace continued, with no surgical plans at present. 9. Glaucoma, Family History Ongoing vigilance supported by awareness of family predisposition. During the visit, we discussed the management of the patient's anxiety and depression with sertraline, which has been effective for her symptoms. We reviewed her thyroid management on levothyroxine, planning for blood tests to ensure adequate control of her thyroid function. For her vertigo, [id number] meclizine continues to be suitable. Sinus headaches are tolerated with Tylenol Sinus, avoiding stronger medications due to sedation concerns. The patient was informed about maintaining Vitamin D supplementation. We agreed on ordered x-rays to assess knee osteoarthritis further, given familial history. Current management of plantar fasciitis with inserts and cream was agreeable, deferring injections. Slight carpal tunnel syndrome remains managed with conservative measures, without current surgical intervention. We acknowledged her family history of glaucoma, incorporating regular eye assessments into her health maintenance strategy. Orders: Orders Complete Blood Count Auto Diff Today Z00.00 - Encounter for general adult medical examination without abnormal findings Comprehensive [place]. Panel Fast Today Z00.00 - Encounter for general adult medical examination without abnormal findings Magnesium Today Z00.00 - Encounter for general adult medical examination without abnormal findings Hemoglobin A1c Today Z00.00 - Encounter for general adult medical examination without abnormal findings Lipid Panel Today Z00.00 - Encounter for general adult medical examination without abnormal findings Liver Panel Today Z00.00 - Encounter for general adult medical examination without abnormal findings Vitamin D 25-OH Total Today Z00.00 - Encounter for general adult medical examination without abnormal findings Vitamin B12 and Folate Today Z00.00 - Encounter for general adult medical examination without abnormal findings TSH reflex Free T4 Today Z. - Encounter for general adult medical examination without abnormal findings Parathyroid Hormone Intact Today Z. - Encounter for general adult medical examination without abnormal findings Phosphorus Today Z. - Encounter for general adult medical examination without abnormal findings Progesterone Today Z. - Encounter for general adult medical examination without abnormal findings C Reactive Protein Today Z. - Encounter for general adult medical examination without abnormal findings Erythrocyte Sedimentation Rate Today Z. - Encounter for general adult medical examination without abnormal findings Estrogen Today Z. - Encounter for general adult medical examination without abnormal findings Prolactin Today Z. - Encounter for general adult medical examination without abnormal findings Testosterone, Total Today Z. - Encounter for general adult medical examination without abnormal findings CA echo transthoracic complete Today R01.1 - Cardiac murmur, unspecified XR Knee Herbie 4V Today M25.561 - Pain in right knee, M25.562 - Pain in left knee Medications: New levothyroxine 50 mcg PO DAILY 90 tabs 1RF sertraline 50 mg PO DAILY 90 tabs 1RF cholecalciferol (vitamin D3) 50 mcg PO DAILY 90 caps 1RF E55.9 - Vitamin D deficiency, unspecified Patient Instructions: - Continue taking sertraline and levothyroxine as directed. - Use meclizine [id number] as needed for vertigo. - Take Tylenol Sinus for headache relief due to seasonal changes. - Ensure adequate vitamin D intake; try [id number] supplements if needed. - Wear shoe inserts for foot support and use cream for plantar fasciitis as required. - Use wrist brace for carpal tunnel symptoms; surgery is not needed now. - Undergo ordered x-rays for knee pain to check for arthritis. - Have regular eye check-ups for glaucoma monitoring. - Follow up in six months for routine evaluation, unless advised otherwise.
[2024-12-27 09:32] VITALS: BP 119/56; PULSE 68; RESP 14; TEMP 36.6; O2SAT 97; BMI 34.0
--- OUTSIDE RECORDS SUMMARY | 2024-12-27 09:57 | XMS_ITS | Clinical Summary ---
Author Organization [facility] Address [address] [place] [address] Phone Care Team Providers Care Seat Builder Name Role Phone Jesús Knott MD Primary Care Provider [phone] Allergies Active Allergy Reactions Criticality Noted Date Comments Other Hives 03/25/2017 [place] powder Medications diclofenac (VOLTAREN) 1 % topical gel Apply 4 g topically. 10/01/2023 Active cholecalciferol (VITAMIN D-3) 50 mcg (2,000 unit) tablet Take 1 tablet (2,000 Units total) by mouth 1 (one) time each day. 08/11/2023 Active hydrOXYzine HCL (ATARAX) 25 mg tablet Take 1 tablet (25 mg total) by mouth 3 (three) times a day if needed. 06/02/2023 Active sertraline (ZOLOFT) 50 mg tablet Take 1 tablet (50 mg total) by mouth 1 (one) time each day. 90 each 3 07/12/2024 Active levothyroxine (SYNTHROID, LEVOTHROID) 50 mcg tablet Take 1 tablet (50 mcg total) by mouth 1 (one) time each day. 90 each 3 07/12/2024 5 Active Active Problems Problem Noted Date Diagnosed Date Class 1 obesity due to exces s calories without serious comorbidity with body mass index (BMI) of 31.0 to 31.9 in adult 06/09/2024 Anxiety and depression 03/26/2023 Right carpal tunnel syndrome 01/09/2023 Overview (06/09/2024): Mild and early, confirmed by EMG 2022 Diverticulitis of large inte cassandra without perforation or abscess without bleeding 01/11/2017 Overweight 05/08/2016 Hypothyroidism 05/08/2016 Immunizations Name Administration Dates Next Due Tdap Tetanus diptheria acell ular pertussis (Boostrix; Adacel) 7yo and older 02/08/2015 Surgical History Surgery Date Site/Laterality Comments APPENDECTOMY PROCEDURE: HISTORICAL APPENDECTOMY CHOLECYSTECTOMY PROCEDURE: HISTORICAL CHOLECYSTECTOMY COLONOSCOPY 03/25/2017 PROCEDURE: HISTORICAL COLONOSCOPY; COMMENT: cohen colonic diverticulosis and hemorhhoids; repeat in 10 yrs Medical History Medical History Date Comments Hypothyroid DX:Hypothyroid Diverticulosis DX:Diverticulosi s Family History Medical History Relation Name Comments Other: cerebral palsy Brother Other: sleep apnea Father Breast cancer Maternal Great-Grandmother Breast cancer Mother age 40 Diabetes Mother Other: sleep apnea Mother Relation Name Status Comments Brother Father Maternal Great-Grandmother Alive Mother Social History Tobacco Use Types Packs/Day Years Used Date Smoking Tobacco: Never Smokeless Tobacco: Never Alcohol Use Standard Drinks/Week Comments Yes 0 (1 standard drink = 0.6 oz pur e alcohol) Housing Instability Answer Date Recorde d Are you worried that in the next 2 months you may not have stable housing? No 07/09/2024 Food Access & Nutrition Answer Date Rec orded Do you have access to a vari ety of food including fruits and vegetables? Yes 07/09/2024 Access to Healthcare Answer Date Record ed Within the last 3 months, ho w many times did you visit the emergency department for your medical care? 0 07/09/2024 Health Literacy Answer Date Recorded How often do you need to hav e someone help you when you read instructions, pamphlets, or other written material from your doctor or pharmacy? Never 07/09/2024 Caregiver: How often do you need to have someone help you when you read instructions, pamphlets, or other written material from your doctor or pharmacy? Not on file 07/09/2024 Financial Risk Answer Date Recorded How hard is it for you to pa y for the very basics like food, housing, medical care, and air conditioning / heating? Not very hard 07/09/2024 Transportation Answer Date Recorded Has the lack of transportati on kept you from meetings, work, or from getting things needed for daily living? No Has the lack of transportati on kept you from medical appointments or from getting medications? No 07/09/2024 Social Isolation Answer Date Recorded How often do you feel lonely or isolated from th ose around you? Never 07/09/2024 Food Risk Answer Date Recorded Within the past 12 months we worried whether our food would run out before we got money to buy more. Never true 07/09/2024 Within the past 12 months th e food we bought just didn't last and we didn't have money to get more. Never true 07/09/2024 Dependent Care Answer Date Recorded Do you need help finding or paying for care for your loved ones. For example, early childhood services coordinator or elderly care for an older adult? No 07/09/2024 Education Answer Date Recorded Do you think completing more education or training, like finishing a GED, going to college, or learning a trade, would be helpful for you? N/A 07/09/2024 Employment and Income Answer Date Recor ded During the last four weeks, have you been actively looking for work? No 07/09/2024 Living Situation Answer Date Recorded What is your living situation? 1 09/08/2023 Comments No Sex and Gender Information Value Date Recorded Sex Assigned at Female 07/30/2024 11:08 PM EST Legal Sex Female 9:49 AM EST Gender Identity Female 07/30/2024 11:08 PM EST Sexual Orientation Straight 07/30/2024 11 :08 PM EST Obstetrics History Last Filed Vital Signs Vital Sign Reading Time Taken Comments Blood Pressure 110/64 07/12/2024 10:42 AM EST Pulse 82 07/12/2024 10:42 AM EST Temperature 36.4 ??C (97.5 ??F) 07/12/2024 10:[address] Respiratory Rate 14 07/12/2024 10:42 AM EST Oxygen Saturation 97% 07/12/2024 10:42 AM EST Inhaled Oxygen Concentration - - Weight 80.7 kg (178 lb) 07/28/2024 10:30 AM EST Height 157.5 cm (5' 2 ) 07/28/2024 10:30 AM EST Body Mass Index 32.56 07/28/2024 10:30 AM EST Plan of Treatment Health Maintenance Due Date Last Done Comments Hepatitis B Vaccines (1 of 3 - 19+ 3-dose series) 1995 Colorectal Cancer Screening: Colonoscopy 08/10/2022 HIV Screening 08/10/2022 Hepatitis C Screening 08/10/2022 COVID-19 Vaccine ( season) 2024 08/22/2021, 11/09/2020, 10/12/2020 DTaP,Tdap,and Td Vaccines (2 - Td or Tdap) 02/08/2025 02/08/2015 Influenza Vaccine (Season Ended) 2025 Depression Screening 07/09/2025 07/09/2024 Social Influencers of Health Screening 07/09/2025 07/09/2024 Cervical Cancer Screening: Pap Smear 01/29/2026 01/29/2023 Breast Cancer Screening 07/28/2026 07/28/20 24, 06/30/2023, 06/13/2022, Additional history exists Cholesterol Screening (Lipid Panel) 07/06/2029 07/06/2024, 09/04/2023 HIB Vaccines Aged Out No longer eligi ble based on patient's age to complete this topic HPV Vaccines Aged Out No longer eligi ble based on patient's age to complete this topic Hepatitis A Vaccines Aged Out No long er eligible based on patient's age to complete this topic IPV Vaccines Aged Out No longer eligi ble based on patient's age to complete this topic MMR Vaccines Aged Out No longer eligi ble based on patient's age to complete this topic Meningococcal ACWY Vaccine Aged Out N o longer eligible based on patient's age to complete this topic Meningococcal B Vaccine Aged Out No l onger eligible based on patient's age to complete this topic Pneumococcal Vaccine: Pediatrics (0 to 5 Years) and At-Risk Patients (6 to 64 Years) Aged Out No longer eligible based on patient's age to complete this topic RSV Immunization Patients Under 20 months Aged Out No longer eligible based on patient's age to complete this topic Varicella Vaccines Aged Out No longer eligible based on patient's age to complete this topic Procedures Procedure Name Priority Date/Time Associated Diagnosis Comments MG MAMMO DIGITAL SCREENING W TRAVIS BILAT Routine 07/28/2024 10:41 AM EST Encounter for screening mammogram for breast cancer LIPID PANEL WITH REFLEX TO DIRECT LDL Routine 07/06/2024 11:04 AM EST Other specified hypothyroidism Class 1 obesity due to excess calories without serious comorbidity with body mass index (BMI) of 31.0 to 31.9 in adult HM PAP SMEAR Routine 01/29/2023 from Last 3 Months or Most Recently Relevant to Health Maintenance Results * MG Mammo Digital Screening w Travis bilat (07/28/2024 10:41 AM EST) Anatomical Region Laterality Modality Breast Bilateral Mammography 07/28/2024 11:3 6 AM EST Impressions 07/28/2024 11:43 AM EST No mammographic evidence of malignancy. ?? No suspicious interval change. A negative mammogram in the presence of a clinically suspicious palpable abnormality does not preclude the possibility of malignancy or alter the indications for biopsy. ASSESSMENT: ?? BI-RADS 1: NEGATIVE RECOMMENDATION(S): 1: Routine screening mammogram BILATERAL in 1 year. -------- FINAL REPORT -------- Dictated By: Jarrett Wright Dictated Date: 07/28/2024 11:36 ET Assigned Physician: Jarrett Wright Reviewed and Electronically Signed By: Jarrett Wright Signed Date: 07/28/2024 11:43 ET Workstation ID: [id number] Transcribed By: Self Edit Transcribed Date: 07/28/2024 11:36 ET Narrative 07/28/2024 11:43 AM EST EXAM: ??SCREENING MAMMOGRAPHY, BILATERAL HISTORY: ??SCREENING. ??Mother diagnosed with breast cancer age 40 COMPARISON: ??06/30/2023, 06/13/2022, 06/06/2021, 05/22/2020 TECHNIQUE: Synthesized CC and MLO projections of each breast. ??Tomosynthesis of each breast in the CC and MLO projections. ADDITIONAL IMAGING: None Computer-aided detection was employed with the iCAD ??profound AI 3-D. TISSUE DENSITY: There are scattered areas of fibroglandular density. (BI-RADS category B) FINDINGS: RIGHT BREAST: No suspicious mass. No suspicious calcification. No distortion. ?? No additional suspicious right breast findings LEFT BREAST: No suspicious mass. No suspicious calcification. No distortion. ?? No additional suspicious left breast findings Procedure Note Jarrett Wright MD - 07/28/2024 EXAM: SCREENING MAMMOGRAPHY, BILATERAL HISTORY: SCREENING. Mother diagnosed with breast cancer age 40 COMPARISON: 06/30/2023, 06/13/2022, 06/06/2021, 05/22/2020 TECHNIQUE: Synthesized CC and MLO projections of each breast.Tomosynthesis of each breast in the CC and MLO projections. ADDITIONAL IMAGING: None Computer-aided detection was employed with the [employer] AI 3-D. TISSUE DENSITY: There are scattered areas of fibroglandular density.(BI-RADS category B) FINDINGS: RIGHT BREAST: No suspicious mass. No suspicious calcification. No distortion. Noadditional suspicious right breast findings LEFT BREAST: No suspicious mass. No suspicious calcification. No distortion. Noadditional suspicious left breast findings IMPRESSION: No mammographic evidence of malignancy. No suspicious interval change. A negative mammogram in the presence of a clinically suspicious palpableabnormality does not preclude the possibility of malignancy or alter theindications for biopsy. ASSESSMENT: BI-RADS 1: NEGATIVE RECOMMENDATION(S): 1: Routine screening mammogram BILATERAL in 1 year. -------- FINAL REPORT -------- Dictated By: Jarrett Wright Dictated Date: 07/28/2024 11:36 ET Assigned Physician: Jarrett Wright Reviewed and Electronically Signed By: Jarrett Wright Signed Date: 07/28/2024 11:43 ET Workstation ID: [id number] Transcribed By: Self Edit Transcribed Date: 07/28/2024 11:36 ET us Self Referral Sppl IMG BI PROCEDURES Final Resul t * Lipid panel with reflex to direct LDL (07/06/2024 11:04 AM EST) Cholesterol 151 0 - 200 mg/dL LAB CHEMISTRY METHOD 07/06/2024 3:[address] [facility] Triglycerides 59 0 - 150 mg/dL LAB CHEMISTRY METHOD 07/06/2024 3:[address] [facility] HDL 75 >=40 mg/dL LAB CHEMISTRY METHOD 07/06/2024 3:23 PM [facility] LDL Calculated 64 0 - 100 mg/dL LAB CHEMISTRY METHOD 07/06/2024 3:23 PM [facility] VLDL Cholesterol Nik 11.8 mg/dL LAB CHEMISTRY METHOD 07/06/2024 3:23 PM [facility] Non HDL Chol. (LDL+VLDL) 76 <145 mg/dL LAB CHEMISTRY METHOD 07/06/2024 3:23 PM [facility] Chol/HDL Ratio 2.0 0.0 - 4.4 LAB CHEMISTRY METHOD 07/06/2024 3:23 PM [facility] Blood Venous blood specimen / Unknown Venipuncture / Unknown 07/06/2024 11:04 AM EST 07/06/2024 11:04 AM EST [facility] BLOOD ORDERABLES Fin al Result [facility] [address] [place] [address], * Pap Smear (01/29/2023) Pap smear no interpretation , abstracted Historical Provider HEALTH MAINTENANCE Final Result from Last 3 Months or Most Recently Relevant to Health Maintenance Insurance [facility] Care Teams Seat Builder Relationship Specialty Start Date End Date Jesús Knott MD [address] [place] [address] PCP - General 03/18/07
== END 2024-12-27 10:16 | disposition home or self-care (01) ==
LOC: HO.HMCSH 09:07
PROVIDERS: PCP Internal Medicine; Visit Provider Physician Assistant Medical
DX: Z76.89 Persons encountering health services in other specified circumstances (principal); H81.10 Benign paroxysmal vertigo, unspecified ear; E55.9 Vitamin D deficiency, unspecified; F32.A Depression, unspecified; F41.9 Anxiety disorder, unspecified; R01.1 Cardiac murmur, unspecified; M72.2 Plantar fascial fibromatosis; M25.561 Pain in right knee; M25.562 Pain in left knee; E03.9 Hypothyroidism, unspecified; E66.811 Obesity, class 1; G56.00 Carpal tunnel syndrome, unspecified upper limb

== ENCOUNTER → 2024-12-27 11:02 | Outpatient (BNV) | payer BC, SELFPAY | PROVIDERS: PCP Internal Medicine; Visit Provider Radiology Diagnostic Radiology | DX: M25.561 Pain in right knee (principal); M25.562 Pain in left knee | CPT/HCPCS: 73564 ==

== ENCOUNTER → 2025-01-27 10:58 | Outpatient (REF) | payer BC, SELFPAY ==
--- NOTE | 2025-01-27 11:01 | CA_ITS ---
Transthoracic Echocardiogram Patient (Last, First, Middle): Adriana Light, Gender: Female Date of : 1975 Age: 49 Procedure Date: 01/27/2025 Procedure Type: Transthoracic Echocardiogram Location: OP Height: 157.48 cm Weight: 81.65 kg BSA: 1.83 m2 Heart Rate: 67 bpm BP: 105 / 70 mmHg Sales Representative Groceries: RUTH Velasquez MD: Marita Rios PA-C Anchor Tack Puller: Ethan Dial MD Symptoms: R01.1 - Cardiac murmur, unspecified Study Quality: Adequate ECG Rhythm: Sinus Conclusions: - Normal study Findings Left Ventricle Normal left ventricular size, thickness, and systolic function. The visually estimated ejection fraction is between 60-65%. Spectral Doppler is indicative of a normal filling pattern. Right Ventricle Normal right ventricular cavity size and systolic function. Atria Both atria are normal in size. There is no evidence of interatrial shunt. Aortic Valve Normal aortic valve structure and function. There is no aortic valve stenosis. There is no aortic valve regurgitation. Mitral Valve Normal mitral valve structure and function. There is trace mitral valve regurgitation. There is no mitral valve stenosis. Pulmonic Valve The pulmonic valve is likely normal. There is trace to mild pulmonic valve regurgitation. Tricuspid Valve Normal tricuspid valve structure. Tricuspid regurgitation envelope is inadequate for calculation of right ventricular systolic pressure. Normal right atrial pressure. Great Vessels All visible segments of the aorta are normal in size. The visualized portions of the pulmonary artery and branches are normal. Venous The inferior vena cava is normal in size and collapses greater than 50% with inspiration. Pericardium/Pleural There is no evidence of pericardial effusion. Prior Study Comparison No prior study available for comparison. Measurements 2D Linear Measurements IVSd: 0.79 0.6-0.9/0.6-1.0 cm LVIDd: 4.46 3.9-5.3/4.2-5.9 cm LVIDd Index: 2.44 2.4-3.2/2.2-3.1 cm/m2 LVIDs: 2.68 2.0-3.6 cm LVPWd: 0.86 0.7-1.1 cm LA Diam: 3.20 2.7-3.8/3.0-4.0 cm LAIDs Index: 1.75 1.5-2.3 cm/m2 LV Mass: 145.19 67-162/88-224 g LV Mass Index: 79.34 43-95/49-115 g/m2 LVOT Diam: 2.00 3.0+(-)1.3 cm 2D Systolic Function EF 4C: 62.70 >55% EF 2C: 64.20 >55% EF BiP: 64.30 >55% Mitral Valve MV Pk E: 0.62 MV PK A: 0.52 MV Decel Time: 260.00 E/A: 1.20 E'Lateral: 9.68 E'Medial: 8.16 E/E' Med: 7.60 E/E' Lat: 6.40 PHT: 76.00 MVA PHT: 2.89 Decel [place]: 2.38 Aortic Valve AoV Pk Errol: 1.15 AoV Mn Errol: 0.83 AoV VTI: 0.27 AoV Pk Grad: 5.00 Aov Mn Grad: 3.00 GABRIEL Cont.VTI: 2.16 LVOT LVOT Pk Errol: 0.89 LVOT Mn Errol: 0.59 LVOT VTI: 0.18 LVOT Pk Grad: 3.00 LVOT Mn Grad: 2.00 LVOT Diam: 2.00 LVOT Area: 3.14 Diastolic Function MV Pk E: 0.62 MV Pk A: 0.52 E/A: 1.20 E'Medial: 8.16 E/E' Med: 7.60 E' Laterial: 9.68 E/E' Lat: 6.40 Right Ventricle TAPSE (mm): 22.10 TVS' Errol: 11.10 Tricuspid Valve RA Press: 3.00 Great Vessels Aorta Sinus of Valsalva: 2.70 2.0-3.5 cm Ao Asc: 2.60 2.1-3.4 cm Ao Arch: 2.50 Pulmonary Valve PV Pk Errol: 0.91 Peak PV Grad: 3.00 Updated in Other Vendor System with Status of Final Ethan Dial MD electronically signed on 01/28/2025 11:43:47 AM with status of Final
--- OUTSIDE RECORDS SUMMARY | 2025-01-27 11:27 | XMS_ITS | Clinical Summary ---
Author Organization [facility] Address [address] [place] [address] Phone Care Team Providers Care Desktop Support Consultant Name Role Phone Jesús Knott MD Primary Care Provider [phone] Allergies Active Allergy Reactions Criticality Noted Date Comments Other Hives 03/25/2017 [place] powder Medications diclofenac (VOLTAREN) 1 % topical [...] care for your loved ones. For example, assistant child care teacher or elderly care for an older adult? [...] Procedure Name Priority Date/Time Associated Diagnosis Comments EXTERNAL CLINICAL LAB 12/27/2024 EXTERNAL CLINICAL LAB 12/27/2024 EXTERNAL CLINICAL LAB 12/27/2024 MG MAMMO DIGITAL SCREENING W TRAVIS BILAT [...] Recently Relevant to Health Maintenance Results * External clinical lab (12/27/2024) Only the most recent of3 resultswithin the time period is included. us Provider [facility] BLOOD ORDERABLES Fin al Result * MG Mammo Digital Screening w Travis [...] Signed Date: 07/28/2024 11:43 ET Workstation ID: [id number] Transcribed By: Self Edit Transcribed Date: 07/28/2024 [...] Computer-aided detection was employed with the [employer] profound AI 3-D. TISSUE DENSITY: There are scattered [...] Signed Date: 07/28/2024 11:43 ET Workstation ID: [id number] Transcribed By: Self Edit Transcribed Date: 07/28/2024 11:36 ET us Self Referral Sppl IMG BI PROCEDURES Final Resul t * Lipid panel with reflex to direct LDL (07/06/2024 11:04 AM EST) Cholesterol 151 0 - 200 mg/dL LAB CHEMISTRY METHOD 07/06/2024 3:23 PM EST [facility] Triglycerides 59 0 - 150 mg/dL LAB CHEMISTRY METHOD 07/06/2024 3:23 PM EST [facility] HDL 75 >=40 mg/dL LAB CHEMISTRY METHOD 07/06/2024 3:23 PM EST [facility] LDL Calculated 64 0 - 100 mg/dL LAB CHEMISTRY METHOD 07/06/2024 3:23 PM [facility] VLDL Cholesterol Nik 11.8 mg/dL LAB CHEMISTRY METHOD 07/06/2024 3:23 PM [facility] Non HDL Chol. (LDL+VLDL) 76 <145 mg/dL LAB CHEMISTRY METHOD 07/06/2024 3:23 PM [facility] Chol/HDL Ratio 2.0 0.0 - 4.4 LAB CHEMISTRY METHOD 07/06/2024 3:23 PM [facility] Blood Venous blood specimen / Unknown Venipuncture / Unknown 07/06/2024 11:04 AM EST 07/06/2024 11:04 AM EST [facility] BLOOD ORDERABLES Fin al Result [facility] [address] [place] [address], * Hm Pap Smear (01/29/2023) HM Pap smear no interpretation , abstracted Historical Provider HEALTH MAINTENANCE Final Result from Last 3 Months or Most Recently Relevant to Health Maintenance Insurance [facility] Care Teams Desktop Support Consultant Relationship Specialty Start Date End Date Jesús Knott MD [address] [place] [address] PCP - General 03/18/07
== END ==
LOC: HO.CARD 10:58
PROVIDERS: PCP Internal Medicine; Visit Provider Physician Assistant Medical
DX: R01.1 Cardiac murmur, unspecified (principal)
CPT/HCPCS: 93306

== ENCOUNTER → 2025-01-27 11:01 | Outpatient (BNV) | payer BC, SELFPAY | PROVIDERS: PCP Internal Medicine; Visit Provider Internal Medicine Cardiovascular Disease | DX: I37.1 Nonrheumatic pulmonary valve insufficiency (principal); R01.1 Cardiac murmur, unspecified | CPT/HCPCS: 93306 ==

== ENCOUNTER 2025-04-01 09:18 | Outpatient (AMB) | payer BC, SELFPAY ==
[2025-04-01 09:22] VITALS: BP 122/80; PULSE 60; RESP 14; TEMP 36.6; O2SAT 96; BMI 33.7
--- NOTE | 2025-04-01 09:22 | A.OFFPC_ITS ---
Vital Signs 04/01/25 09:22 Height 5 ft 2 in Weight 184 lb BMI 33.7 BP 122/80 Respiration 14 Pulse 60 Pulse Source Pulse Oximeter Temp 97.9 F Temp Source Temporal Artery Scan Pulse Oximetry (%) 96 Oxygen Delivery Method Room Air Intake Visit Reasons: eval left leg Seat Joiner Chainstitch Required: No Accompanied by: Self / Same As Patient Allergies No Known Allergies Allergy (Verified 04/01/25 10:05) Medication List - Last Reconciled 04/01/25 by Marita Rios PA-C cholecalciferol (vitamin D3) 50 mcg PO DAILY levothyroxine 50 mcg PO DAILY sertraline 50 mg PO DAILY Tobacco use date assessed: 04/01/25 Dental Screening Dental Screen Date: 12/27/24 HPI eval left leg HPI Details The patient is a 49-year-old female presenting with left leg pain and sensory changes. The leg pain has been ongoing for at least four weeks, with an unclear inciting event, possibly a bite or fall. The patient describes the pain as originating from the knee, accompanied by sensations of rubbery feeling on the outside and trembles on the inside, particularly when cool. The patient reports a bruise that developed and resolved, with ongoing tenderness and occasional spasms. She denies any recent significant trauma or falls, although she recalls a fall two weeks ago that may have contributed to the symptoms. 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 She expresses concern about developing similar knee problems as her mother, who is currently receiving cortisone injections. Additionally, the patient has a history of neck disc issues, with two discs touching, for which she has previously undergone physical therapy. 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 [facility] Medical History (Updated 04/01/25 @ 13:03 by Marita Rios PA-C) Chronic neck pain Left leg pain Calcium pyrophosphate deposition disease of knee Carpal tunnel syndrome History of mammogram (~06/2024) Hypothyroidism (acquired) Obesity (BMI 30.0-34.9) Bilateral knee pain Plantar fasciitis Heart murmur Establishing care with new doctor, encounter for Anxiety Depression Vitamin D deficiency Surgical History History of colonoscopy Family History Father High cholesterol Mother Breast cancer BP (high blood pressure) Diabetes Social History Housing: House Alcohol intake: current Alcohol intake frequency: holidays/special occasions only Alcohol type: beer and wine Patient Tobacco Use Status: Never used Tobacco e-Cigarette/Vaping Use: Never Used Second Hand Smoke Exposure: No service: No Current occupational status: employed Cognitive needs: No Hearing needs: No Vision needs: No Questionnaire PHQ-9 Over the last 2 weeks, how often have you been bothered by any of the following problems? 1. Little interest or pleasure in doing things: not at all 2. Feeling down, depressed, or hopeless: not at all 3. Trouble falling or staying asleep, or sleeping too much: not at all 4. Feeling tired or having little energy: not at all 5. Poor appetite or overeating: not at all 6. Feeling bad about yourself - or that you are a failure or have let yourself or your family down: not at all 7. Trouble concentrating on things, such as reading the newspaper or watching television: not at all 8. Moving or speaking so slowly that other people could have noticed. Or the opposite - being so fidgety or restless that you have been moving around a lot more than usual: not at all 9. Thoughts that you would be better off or of hurting yourself in some way: not at all Total score: 0 Depression Screening Interpretation: Negative Depression Screening Done: Yes 81987 - PHQ-9 Billing: Yes Source: Developed by Drs. Enmanuel Allan, Mercy Nuñez, Mariano Nguyen and colleagues, with an educational kim from [employer]. Thrive Questionnaire Date Thrive assessed: 12/27/24 I am a: Patient What is your living situation today?: I have a steady place to live Within the past 12 months, did the food you bought not last and you didn't have the money to get more?: Never true Within the past 12 months, did you worry whether your food would run out before you got money to buy more?: Never true Do you have trouble paying for medicines?: No Do you have trouble getting transportation to medical appointments?: No Do you have trouble paying your heating and electricity bill?: No Do you have trouble taking care of your child, family member or friend?: No Do you have trouble with day-to-day activities such as bathing, preparing meals, shopping, managing finances, etc.?: No Are you currently unemployed and looking for a job?: No Are you interested in more education?: No Please select the resources that you would like help with: None THRIVE Score: 0 AUDIT C Alcohol Use Questionnaire (AUDIT-C) 1. How often do you have a drink containing alcohol?: Monthly or less 2. How many drinks containing alcohol do you have on a typical day when you are drinking?: 1 or 2 3. How often do you have six or more drinks on one occasion?: Never Total Score: 1 Score Reviewed/Action Taken: No ANGEL LUIS-7 AMB Questionnaire ANGEL LUIS-7 Date ANGEL LUIS - 7 assessed: 12/27/24 Feeling nervous, anxious, or on edge: 0 = Not at all Not being able to stop or control worryin = Not at all Worrying too much about different things: 0 = Not at all Trouble relaxin = Not at all Being so restless that it is hard to sit still: 0 = Not at all Becoming easily annoyed or irritable: 0 = Not at all Feeling afraid as if something awful might happen: 0 = Not at all Total ANGEL LUIS-7 score (0-4 normal; 5-9 mild; 10-14 moderate; 15-21 severe): 0 Source: Developed by Drs. Enmanuel Allan, Mercy Nuñez, Mariano Nguyen and colleagues, with an educational kim from [employer]. ANGEL LUIS-7 Assessment Billing ANGEL LUIS-7 Assessment Tool: ANGEL LUIS-7 Assessment 40366 Review of Systems Const Details: - Musculoskeletal: Reports leg pain for four weeks, intermittent spasms, and sensory changes. Denies recent significant trauma. - Neurological: Reports sensations of rubbery feeling and trembles in the leg. All systems reviewed & are unremarkable except as noted in HPI and below Physical exam (Primary Care) Vital Signs: Last Vital Signs Temp 97.9 F 04/01/25 09:22 Pulse 60 04/01/25 09:22 Resp 14 04/01/25 09:22 BP 122/80 04/01/25 09:22 Pulse Ox 96 04/01/25 09:22 Oxygen Delivery Method Room Air 04/01/25 09:22 Care Plan Goal for BP management: <140/90 at Goal BMI result Body Mass Index 33.7 BMI Assessment/Plan discussion: High BMI High, discussed plan: lifestyle, weight reduction, dietary, physical activity and alcohol moderation Tobacco/Smoking Status: Tobacco use Status Tobacco use date assessed 04/01/25 04/01/25 09:26 Patient Tobacco Use Status Never used Tobacco 04/01/25 09:26 e-Cigarette/Vaping Use Never Used 04/01/25 09:26 PHQ-9: PHQ-9 Score PHQ-9: Total score 0 04/01/25 09:47 Depression Screening Interpretation: Negative Thrive Assessment: Date of Thrive Assessment Date Thrive assessed 12/27/24 04/01/25 09:26 Const Other: Appearance: Alert. Oriented X3. No acute distress. Head: Normal external exam. Normocephalic. Atraumatic. Eyes: Pupils are equal, round, and reactive to light. Extraocular movements intact. Conjunctiva and sclera normal. Eyelids normal. Throat: Pharynx normal. Uvula midline. Moist mucous membranes. Neck: Normal inspection. Neck supple. Full range of motion. Cardiovascular: Normal heart rate and rhythm. Respiratory: No respiratory distress. Painless inspiration. Back: Full range of motion noted. Skin: Skin warm and dry. Normal skin color. Normal skin turgor. No rashes/lesions/lacerations noted. Extremities: Extremities exhibit normal range of motion. Patient reports tenderness to the left lateral thigh area. There is no obvious deformities, no rashes, signs of infection no ecchymosis noted there is no bone tenderness noted. No obvious ligamentous or tendon injury noted to the left hip/left knee she has full range of motion of left hip/left knee. She has a normal steady gait. No lower extremity edema or calf tenderness is noted. Neuro: Oriented X 3. No motor deficit. No sensory deficit. Reflexes normal. Results Reviewed Results Reviewed: - Tests: Previous x-rays showed knee crystallization (CPPD). Coding Level of Care Code Est Pt Level 4 (83660) Complex EM visit Add On G2211 Diagnoses Left leg pain M79.605 Calcium pyrophosphate deposition disease of knee M11.869 Chronic neck pain M54.2; G89.29 Additional Codes ANGEL LUIS-7 Assessment Billing - ANGEL LUIS-7 Assessment Tool: ANGEL LUIS-7 Assessment 27650 ([id number]) PHQ-9 - 06756 - PHQ-9 Billing: Yes ([id number]) Assessment & Plan Assessment & Plan (1) Left leg pain: Code(s): M79.605 - Pain in left leg Category: Medical Plan: The plan includes ordering blood work to rule out Lyme disease and check for deficiencies in potassium and magnesium, which could be contributing to the symptoms. A referral to rheumatology is considered to evaluate for potential gout or other rheumatologic conditions. (2) Calcium pyrophosphate deposition disease of knee: Code(s): M11.869 - Other specified crystal arthropathies, unspecified knee Category: Medical Plan: The patient is advised to follow up with rheumatology to assess the need for further interventions, such as NSAIDs or joint injections, and to consider physical therapy as a non-invasive option. (3) Chronic neck pain: Code(s): M54.2 - Cervicalgia; G89.29 - Other chronic pain Category: Medical Plan: The patient has a history of neck disc issues with two discs touching, previously managed with physical therapy. Plan Plan Patient was informed and verbally consented to the use of an ambient scribe for clinic note documentation during this visit. 1. Leg Pain The plan includes ordering blood work to rule out Lyme disease and check for deficiencies in potassium and magnesium, which could be contributing to the symptoms. A referral to rheumatology is considered to evaluate for potential gout or other rheumatologic conditions. 2. Knee Crystallization The patient is advised to follow up with rheumatology to assess the need for further interventions, such as NSAIDs or joint injections, and to consider physical therapy as a non-invasive option. 3. Neck Disc Issues The patient has a history of neck disc issues with two discs touching, previously managed with physical therapy. I discussed with the patient the possibility of Lyme disease and the need for blood work to rule out deficiencies in potassium and magnesium. We also talked about the potential for rheumatologic conditions and the benefits of consulting with rheumatology. The patient was informed about the nature of knee crystallization and the possible treatment options, including NSAIDs and joint injections. Orders: Orders Magnesium Today Z00.00 - Encounter for general adult medical examination without abnormal findings Basic Metabolic Panel Today M79.605 - Pain in left leg Complete Blood Count no Diff Today M79.605 - Pain in left leg Lyme IgG/IgM w/reflex to WB Today Z00.00 - Encounter for general adult medical examination without abnormal findings Referrals Rheumatology Referral M11.869 - Other specified crystal arthropathies, unspecified knee Patient Instructions: - Follow up with rheumatology as scheduled. - Complete the blood work for Lyme disease and mineral deficiencies as discussed. - Monitor symptoms and report any worsening or new symptoms.
--- OUTSIDE RECORDS SUMMARY | 2025-04-01 09:30 | XMS_ITS | Clinical Summary ---
Author Organization [facility] Address [address] [place] [address] Phone Care Team Providers Care Applications Programmer Analyst Name Role Phone Jesús Knott MD Primary Care Provider [phone] Allergies Active Allergy Reactions Criticality Noted Date Comments Other Hives 03/25/2017 [place] powder Medications diclofenac (VOLTAREN) 1 % topical [...] for your loved ones. For example, child development consultant or elderly care for an older adult? [...] 82 07/12/2024 10:42 AM EST Temperature 36.4 C (97.5 F) 07/12/2024 10:42 AM EST Respiratory Rate 14 07/12/2024 10:42 AM EST [...] Vaccine ( season) 2024 08/22/2021, 11/09/2020, 10/12/2020 Depression Screening 09/01/2024 07/09/2024 DTaP,Tdap,and Td Vaccines (2 - Td or Tdap) 02/08/2025 02/08/2015 Influenza Vaccine (#1) 2025 Social Influencers of Health Screening 07/09/2025 07/09/2024 [...] 5 Years) and At-Risk Patients (6 to 49 Years) Aged Out No longer eligible based [...] AM EST No mammographic evidence of malignancy. No suspicious interval change. A negative mammogram in the presence of a clinically suspicious palpable abnormality does not preclude the possibility of malignancy or alter the indications for biopsy. ASSESSMENT: BI-RADS 1: NEGATIVE RECOMMENDATION(S): 1: Routine screening mammogram BILATERAL in 1 year. -------- FINAL REPORT -------- Dictated By: Jarrett Wright Dictated Date: 07/28/2024 11:36 ET Assigned Physician: Jarrett Wright Reviewed and Electronically Signed By: Jarrett Wright Signed Date: 07/28/2024 11:43 ET Workstation ID: [id number] Transcribed By: Self Edit Transcribed Date: 07/28/2024 11:36 ET Narrative 07/28/2024 11:43 AM EST EXAM: SCREENING MAMMOGRAPHY, BILATERAL HISTORY: SCREENING. Mother diagnosed with breast cancer age 40 COMPARISON: 06/30/2023, 06/13/2022, 06/06/2021, 05/22/2020 TECHNIQUE: Synthesized CC and MLO projections of each breast. Tomosynthesis of each breast in the CC and MLO projections. 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 TISSUE DENSITY: There are scattered areas of fibroglandular density. (BI-RADS category B) FINDINGS: RIGHT BREAST: No suspicious mass. No suspicious calcification. No distortion. No additional suspicious right breast findings LEFT BREAST: No suspicious mass. No suspicious calcification. No distortion. No additional suspicious left breast findings Procedure Note Jarrett Wright MD - 07/28/2024 EXAM: SCREENING MAMMOGRAPHY, BILATERAL HISTORY: SCREENING. Mother diagnosed with breast cancer age 40 COMPARISON: 06/30/2023, 06/13/2022, 06/06/2021, 05/22/2020 TECHNIQUE: Synthesized CC and MLO projections of each breast.Tomosynthesis of each breast in the CC and MLO projections. 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 TISSUE DENSITY: There are scattered [...] Signed Date: 07/28/2024 11:43 ET Workstation ID: [id number] Transcribed By: Self Edit Transcribed Date: 07/28/2024 11:36 ET us Self Referral Sppl IMG BI PROCEDURES Final Resul t * Lipid panel with reflex to direct LDL (07/06/2024 11:04 AM EST) Cholesterol 151 0 - 200 mg/dL LAB CHEMISTRY METHOD 07/06/2024 3:23 PM EST [facility] Triglycerides 59 0 - 150 mg/dL LAB CHEMISTRY METHOD 07/06/2024 3:23 PM EST [facility] HDL 75 >=40 mg/dL LAB CHEMISTRY METHOD 07/06/2024 3:23 PM EST [facility] LDL Calculated 64 0 - 100 mg/dL LAB CHEMISTRY METHOD 07/06/2024 3:23 PM [facility] VLDL Cholesterol Nik 11.8 mg/dL LAB CHEMISTRY METHOD 07/06/2024 3:23 PM EST [facility] Non HDL Chol. (LDL+VLDL) 76 <145 mg/dL LAB CHEMISTRY METHOD 07/06/2024 3:23 PM EST [facility] Chol/HDL Ratio 2.0 0.0 - 4.4 LAB CHEMISTRY METHOD 07/06/2024 3:23 PM [facility] Blood Venous blood specimen / Unknown Venipuncture / Unknown 07/06/2024 11:04 AM EST 07/06/2024 11:04 AM EST [facility] BLOOD ORDERABLES Fin al Result [facility] [address] [place] [address], * Pap Smear (01/29/2023) Pap smear no interpretation , abstracted Historical Provider HEALTH MAINTENANCE Final Result from Last 3 Months or Most Recently Relevant to Health Maintenance Insurance [facility] Care Teams Applications Programmer Analyst Relationship Specialty Start Date End Date Jesús Knott MD [address] [place] [address] PCP - General 03/18/07
== END 2025-04-01 10:05 | disposition home or self-care (01) ==
LOC: HO.HMCSH 09:18
PROVIDERS: PCP Internal Medicine; Visit Provider Physician Assistant Medical
DX: M79.605 Pain in left leg (principal); M11.869 Other specified crystal arthropathies, unspecified knee; M54.2 Cervicalgia; G89.29 Other chronic pain

== ENCOUNTER 2025-04-01 09:18 | Outpatient (REF) | payer BC, SELFPAY ==
[2025-04-01 14:32] LABS: Hematocrit 40.0 % (37.0-47.0); Hemoglobin 13.5 g/dl (12.0-16.0); Mean Corpuscular HGB Conc 33.8 g/dl (31.0-35.0); Mean Corpuscular Hemoglobin 29.1 pg (27.0-33.0); Mean Corpuscular Volume 86.2 fL (80.0-98.0); NRBC Abs Auto 0.000 X10*3/uL (0.0-0.012); NRBC Pct Auto 0.0 /100WBC (0.0-0.2); Platelet Count 277 X10*3/uL (160-400); Red Blood Count 4.64 X10*6/uL (4.20-5.50); White Blood Count 4.3 X10*3/uL (4.8-10.8)
[2025-04-01 14:53] LABS: Anion Gap 10 (12-20); Blood Urea Nitrogen 13 mg/dL (9-16); Calcium 9.2 mg/dL (8.4-10.2); Carbon Dioxide 29 mmol/L (22-29); Chloride 105 mmol/L (96-108); Estimated Glomerular Filt Rate > 60; Magnesium 1.9 mg/dL (1.6-2.6); Potassium 3.9 mmol/L (3.3-5.1); Sodium 140 mmol/L (135-145)
[2025-04-05 01:38] LABS: Lyme Abs Screen <0.90 index
== END 2025-04-01 09:19 | disposition home or self-care (01) ==
LOC: HO.HMGCLDS 09:18
PROVIDERS: PCP Internal Medicine; Visit Provider Physician Assistant Medical
DX: M79.605 Pain in left leg (principal); M11.869 Other specified crystal arthropathies, unspecified knee; M54.2 Cervicalgia; G89.29 Other chronic pain; Z13.31 Encounter for screening for depression
CPT/HCPCS: 36415; 80048; 83735; 85027; 86617; 86618; 96127

== ENCOUNTER 2025-08-01 14:16 | Outpatient (AMB) | payer BC, SELFPAY ==
--- NOTE | 2025-08-01 14:44 | MHC.PC.OV ---
Intake Visit Reasons: annual PE Intake Note: problem with both feet, hormones and right hand falling asleep at night and would like to discuss about her anxiety meds. Allergies No Known Allergies Allergy (Verified 08/01/25 15:03) Medication List - Last Reconciled 08/01/25 by Marita Rios PA-C cholecalciferol (vitamin D3) 50 mcg PO DAILY levothyroxine 50 mcg PO DAILY sertraline 50 mg PO DAILY Tobacco use date assessed: 04/01/25 Dental Screening Dental Screen Date: 08/01/25 Did you have a dental visit in the last 12 months?: Yes Did you have a dental problem in the last 6 months where you did not have access to dental care?: No Was dental information given to patient?: Patient has dentist HPI HPI Comments History of Present Illness Details History of Present Illness The patient is a 50 year old individual presenting for an annual physical examination. The patient has a history of knee pain due to crystallization found on x-rays. A referral to rheumatology had been previously placed, and it was discovered during the visit that an appointment is scheduled for September 27. The patient's mother reportedly has severe, [id number] knee arthritis. The patient also reports symptoms consistent with carpal tunnel syndrome, including waking up with numbness in the fingers despite wearing a night brace. The patient questions if the brace is too large or if the symptoms could originate from the neck, as the patient sometimes feels it in the elbow. The patient wishes to manage this conservatively without surgery. The patient is in a premenopausal state, confirmed by hormone labs, and experiences intermittent hot flashes, mood swings, and hair loss. The patient is concerned about weight gain despite being active and has experienced memory issues, which could be related to perimenopause or a low-normal vitamin B12 level of 287. As a child, the patient had incidents of fainting due to low iron. Past medical history is significant for hypothyroidism for which the patient takes medication. The patient reports occasional ankle twisting without fracture. Preventive screenings include a colonoscopy in 2016, with the next one due in 2026. A mammogram is scheduled for the upcoming month, and cervical cancer screenings are performed by the patient's DENTAL INTERN. Family history is notable for diabetes, high cholesterol, and being overweight in the patient's mother. The patient's mother also has a history of breast cancer and knee arthritis. The patient's father has a fatty tissue mass in his neck, and cousins have had leukemia. Social History - Nutrition: The patient is interested in a referral to a recreational counselor for a natural approach to weight loss, specifically with a provider knowledgeable about perimenopause. - Exercise: Reports being active. [facility] Medical History (Updated 08/01/25 @ 16:24 by Marita Rios PA-C) Leukopenia Low vitamin B12 level Hypothyroidism Annual physical exam Skin lesion Freckles Thyroid nodule Em-menopausal Diverticulosis Anxiety and depression Chronic neck pain Left leg pain Calcium pyrophosphate deposition disease of knee Carpal tunnel syndrome History of mammogram (~06/2024) Hypothyroidism (acquired) Obesity (BMI 30.0-34.9) Bilateral knee pain Plantar fasciitis Heart murmur Establishing care with new doctor, encounter for Anxiety Depression Vitamin D deficiency Surgical History History of cholecystectomy History of appendectomy History of colonoscopy (~03/25/17) Family History Father High cholesterol Mother Breast cancer BP (high blood pressure) Diabetes Social History Housing: House Alcohol intake: current Alcohol intake frequency: holidays/special occasions only Alcohol type: beer and wine Patient Tobacco Use Status: Never used Tobacco e-Cigarette/Vaping Use: Never Used Second Hand Smoke Exposure: No service: No Current occupational status: employed Cognitive needs: No Hearing needs: No Vision needs: No Questionnaire PHQ-9 Over the last 2 weeks, how often have you been bothered by any of the following problems? 1. Little interest or pleasure in doing things: not at all 2. Feeling down, depressed, or hopeless: not at all 3. Trouble falling or staying asleep, or sleeping too much: not at all 4. Feeling tired or having little energy: not at all 5. Poor appetite or overeating: not at all 6. Feeling bad about yourself - or that you are a failure or have let yourself or your family down: not at all 7. Trouble concentrating on things, such as reading the newspaper or watching television: not at all 8. Moving or speaking so slowly that other people could have noticed. Or the opposite - being so fidgety or restless that you have been moving around a lot more than usual: not at all 9. Thoughts that you would be better off or of hurting yourself in some way: not at all Total score: 0 Depression Screening Interpretation: Negative Depression Screening Done: Yes 45469 - PHQ-9 Billing: Yes Source: Developed by Drs. Enmanuel Allan, Mercy Nuñez, Mariano Nguyen and colleagues, with an educational kim from [email or web address]. Thrive Questionnaire Date Thrive assessed: 12/27/24 I am a: Patient What is your living situation today?: I have a steady place to live Within the past 12 months, did the food you bought not last and you didn't have the money to get more?: Never true Within the past 12 months, did you worry whether your food would run out before you got money to buy more?: Never true Do you have trouble paying for medicines?: No Do you have trouble getting transportation to medical appointments?: No Do you have trouble paying your heating and electricity bill?: No Do you have trouble taking care of your child, family member or friend?: No Do you have trouble with day-to-day activities such as bathing, preparing meals, shopping, managing finances, etc.?: No Are you currently unemployed and looking for a job?: No Are you interested in more education?: No Please select the resources that you would like help with: None THRIVE Score: 0 AUDIT C Alcohol Use Questionnaire (AUDIT-C) 1. How often do you have a drink containing alcohol?: Monthly or less 2. How many drinks containing alcohol do you have on a typical day when you are drinking?: 1 or 2 3. How often do you have six or more drinks on one occasion?: Never Total Score: 1 Score Reviewed/Action Taken: No ANGEL LUIS-7 AMB Questionnaire ANGEL LUIS-7 Date ANGEL LUIS - 7 assessed: 12/27/24 Feeling nervous, anxious, or on edge: 0 = Not at all Not being able to stop or control worryin = Not at all Worrying too much about different things: 0 = Not at all Trouble relaxin = Not at all Being so restless that it is hard to sit still: 0 = Not at all Becoming easily annoyed or irritable: 0 = Not at all Feeling afraid as if something awful might happen: 0 = Not at all Total ANGEL LUIS-7 score (0-4 normal; 5-9 mild; 10-14 moderate; 15-21 severe): 0 Source: Developed by Drs. Enmanuel Allan, Mercy Nuñez, Mariano Nguyen and colleagues, with an educational kim from [email or web address]. ANGEL LUIS-7 Assessment Billing ANGEL LUIS-7 Assessment Tool: ANGEL LUIS-7 Assessment 36915 Review of Systems Narrative Review of Systems - Constitutional: Reports intermittent hot flashes, hair loss, and mood swings. - Denies unintentional weight loss. - Neurological: Reports waking with finger numbness and experiencing memory impairment. - Denies recent falls. - Musculoskeletal: Reports knee pain and occasional ankle twisting. - Gastrointestinal: Denies black or bloody stools. - Integumentary: Reports having a new lesion on the foot and dry skin. Const All systems reviewed & are unremarkable except as noted in HPI and below Physical exam (Primary Care) Care Plan Goal for BP management: <140/90 at Goal BMI Assessment/Plan discussion: High BMI High, discussed plan: lifestyle, weight reduction, dietary, physical activity, alcohol moderation and other Tobacco/Smoking Status: Tobacco use Status Tobacco use date assessed 04/01/25 08/01/25 14:46 Patient Tobacco Use Status Never used Tobacco 08/01/25 14:46 e-Cigarette/Vaping Use Never Used 08/01/25 14:46 PHQ-9: PHQ-9 Score PHQ-9: Total score 0 08/01/25 14:46 Depression Screening Interpretation: Negative Thrive Assessment: Date of Thrive Assessment Date Thrive assessed 12/27/24 08/01/25 14:46 Narrative Physical Exam Appearance: Alert. Oriented X3. No acute distress. Head: Normal external exam. Normocephalic. Atraumatic. Eyes: Pupils are equal, round, and reactive to light. Extraocular movements intact. Conjunctiva and sclera normal. Eyelids normal. Ears: External auditory canal normal. Tympanic membranes normal. Throat: Pharynx normal. Uvula midline. Moist mucous membranes. Neck: Normal inspection. Neck supple. Full range of motion. No adenopathy. Thyroid Nodule noted. No meningeal signs. No neck mass noted. Cardiovascular: Heart rate was a little fast today. Normal heart rate and rhythm. Heart sound normal. No murmurs noted. Pulses normal throughout. Respiratory: No respiratory distress. Painless inspiration. Breath sounds normal. No wheezes/rales/rhonchi noted. Chest nontender. No accessory muscle usage noted or decreased air movement noted. Abdomen: Soft and nontender. Bowel sounds normal in all 4 quadrants. No distention noted. No organomegaly noted. No visible injury noted. Back: No costovertebral angle tenderness. Full range of motion noted. Skin: Skin warm and dry. Normal skin color. Normal skin turgor. No rashes/lesions/lacerations noted. Extremities: No lower extremity edema. Extremities exhibit normal range of motion. Extremities nontender. Neuro: Oriented X 3. No motor deficit. No sensory deficit. Reflexes normal. Office Procedures Flu Questionnaire Does the patient have a severe egg allergy?: No Does the patient have severe life threatening allergies?: No Does the patient have a fever or illness today?: No Has the patient ever had Guillain-Shiner Syndrome?: No Has the patient ever had any past reaction to a flu shot?: No Immunizations Fluarix [id number] (PF) 45 mcg (15 mcg x 3)/0.5 mL IM syringe Performing Provider: Marita Rios PA-C [facility] Documented (not given) by: Eleonora Kirkland on 08/01/25 14:53 Reason Not Given: Patient Refused Results Reviewed Results Reviewed: Results - Labs reviewed: - CBC: White blood cell count 4.3. - Chemistry panel: Normal kidney function. - Glucose: Random glucose 85, Hemoglobin A1c 5.2%. - Lipids: Cholesterol reported as perfect. - Hormonal Panel: Total testosterone 15 (normal 2-45), progesterone <0.5, prolactin 5.6, estrogen 85, consistent with premenopause. - Vitamin B12: 287 (low normal). - Vitamin D: Normal. - Lyme test: Negative. - Procedures discussed: - Colonoscopy (03/25/2017): Normal, recommended repeat in 10 years. Coding Level of Care Code Est Pt Level 4 (96058) Est Pt Prev Care 40-64y(79459) Diagnoses Annual physical exam Z00.00 Calcium pyrophosphate deposition disease of knee M11.869 Carpal tunnel syndrome G56.00 Obesity (BMI 30.0-34.9) E66.811 Hypothyroidism E03.9 Thyroid nodule E04.1 Low vitamin B12 level R79.89 Leukopenia D72.819 Additional Codes ANGEL LUIS-7 Assessment Billing - ANGEL LUIS-7 Assessment Tool: ANGEL LUIS-7 Assessment 59735 ([id number]) PHQ-9 - 48428 - PHQ-9 Billing: Yes ([id number]) Time Spent (min) 60 Assessment & Plan Assessment & Plan (1) Annual physical exam: Code(s): Z00.00 - Encounter for general adult medical examination without abnormal findings Category: Medical Plan: The patient presents for an annual wellness visit. The patient is scheduled for a mammogram next month. The last colonoscopy was in 2016, and the next one is due in 2026. The patient gets regular cervical cancer screenings with an DENTAL INTERN. A referral will be placed to dermatology for a full-body skin exam. (2) Calcium pyrophosphate deposition disease of knee: Code(s): M11.869 - Other specified crystal arthropathies, unspecified knee Category: Medical Plan: The patient has known crystal arthropathy of the knees and was informed of a pre-scheduled referral appointment with rheumatology on September 27. The patient will follow up with the specialist per the appointment. (3) Carpal tunnel syndrome: Code(s): G56.00 - Carpal tunnel syndrome, unspecified upper limb Category: Medical Plan: The patient reports nocturnal hand numbness despite using a brace. A referral will be placed to Physical Therapy/Occupational Therapy for evaluation, conservative management, and to ensure proper brace fitting. The patient declines surgical intervention at this time. (4) Obesity (BMI 30.0-34.9): Code(s): E66.811 - Obesity, class 1 Category: Medical Plan: The patient is concerned about weight gain related to perimenopausal changes. A referral for Medical Nutrition Therapy is being provided for dietary counseling tailored to the patient's perimenopausal state, as the patient prefers a natural approach. (5) Hypothyroidism: Code(s): E03.9 - Hypothyroidism, unspecified Category: Medical Plan: The patient has a history of hypothyroidism and takes medication. A possible nodule was palpated on the left side of the thyroid. A thyroid ultrasound will be ordered to investigate this finding. Thyroid function tests will also be rechecked. Follow-up is recommended in 6-12 months to review results. (6) Thyroid nodule: Code(s): E04.1 - Nontoxic single thyroid nodule Category: Medical Plan: The patient has a history of hypothyroidism and takes medication. A possible nodule was palpated on the left side of the thyroid. A thyroid ultrasound will be ordered to investigate this finding. Thyroid function tests will also be rechecked. Follow-up is recommended in 6-12 months to review results. (7) Low vitamin B12 level: Code(s): R79.89 - Other specified abnormal findings of blood chemistry Category: Medical Plan: Recent labs showed a low-normal vitamin B12 level of 287 and a slightly low white blood cell count of 4.3. These may be related to underlying inflammation. Advised consistent use of a multivitamin containing B12 and folic acid to address the low B12, which may also help with memory, energy, hair, and skin. CBC will be rechecked in six months. (8) Leukopenia: Code(s): D72.819 - Decreased white blood cell count, unspecified Category: Medical Plan: Recent labs showed a low-normal vitamin B12 level of 287 and a slightly low white blood cell count of 4.3. These may be related to underlying inflammation. Advised consistent use of a multivitamin containing B12 and folic acid to address the low B12, which may also help with memory, energy, hair, and skin. CBC will be rechecked in six months. Plan Plan Patient was informed and verbally consented to the use of an ambient scribe for clinic note documentation during this visit. 1. Annual Health Maintenance The patient presents for an annual wellness visit. The patient is scheduled for a mammogram next month. The last colonoscopy was in 2016, and the next one is due in 2026. The patient gets regular cervical cancer screenings with an DENTAL INTERN. A referral will be placed to dermatology for a full-body skin exam. 2. Crystal Arthropathy Of Knees The patient has known crystal arthropathy of the knees and was informed of a pre-scheduled referral appointment with rheumatology on September 27. The patient will follow up with the specialist per the appointment. 3. Carpal Tunnel Syndrome The patient reports nocturnal hand numbness despite using a brace. A referral will be placed to Physical Therapy/Occupational Therapy for evaluation, conservative management, and to ensure proper brace fitting. The patient declines surgical intervention at this time. 4. Overweight And Perimenopause The patient is concerned about weight gain related to perimenopausal changes. A referral for Medical Nutrition Therapy is being provided for dietary counseling tailored to the patient's perimenopausal state, as the patient prefers a natural approach. 5. Hypothyroidism And Possible Thyroid Nodule The patient has a history of hypothyroidism and takes medication. A possible nodule was palpated on the left side of the thyroid. A thyroid ultrasound will be ordered to investigate this finding. Thyroid function tests will also be rechecked. Follow-up is recommended in 6-12 months to review results. 6. Low-Normal Vitamin B12 And Leukopenia Recent labs showed a low-normal vitamin B12 level of 287 and a slightly low white blood cell count of 4.3. These may be related to underlying inflammation. Advised consistent use of a multivitamin containing B12 and folic acid to address the low B12, which may also help with memory, energy, hair, and skin. CBC will be rechecked in six months. Discussion Notes I conducted an annual wellness visit with the patient today. We reviewed recent lab results, highlighting the perimenopausal hormone levels, a low-normal vitamin B12 of 287, and a mildly low WBC of 4.3, which will be rechecked in six months. I advised the patient to continue taking a multivitamin to help increase the B12 level, explaining its benefits for memory, energy, and metabolism. We discussed the existing rheumatology appointment for knee arthropathy and placed new referrals for PT/OT for carpal tunnel symptoms, a recreational counselor for weight management, and dermatology for a skin check. During the exam, I palpated a possible thyroid nodule and explained the rationale for ordering a thyroid ultrasound to evaluate it further. I also ordered repeat thyroid labs. The patient agreed with the plan. I advised the patient on the importance of these follow-ups and provided printed copies of the referrals. We scheduled a follow-up visit in six months to a year to review thyroid studies. Orders: Orders Influenza [id number] Immunization Today Z23 - Encounter for immunization PT Evaluation and Treatment Today G56.00 - Carpal tunnel syndrome, unspecified upper limb OT Evaluation and Treatment Today G56.00 - Carpal tunnel syndrome, unspecified upper limb US thyroid Today E04.1 - Nontoxic single thyroid nodule TSH reflex Free T4 Today Z00.00 - Encounter for general adult medical examination without abnormal findings Referrals Medical Nutrition Therapy Referral E03.9 - Hypothyroidism, unspecified, E55.9 - Vitamin D deficiency, unspecified, E66.811 - Obesity, class 1, K57.90 - Diverticulosis of intestine, part unspecified, without perforation or abscess without bleeding, N95.1 - Menopausal and female climacteric states Dermatology Referral L81.2 - Freckles, L98.9 - Disorder of the skin and subcutaneous tissue, unspecified Patient Instructions: Patient Instructions - You have an appointment with a x ray tech (joint specialist) on September 27 for your knee pain. - We are referring you to physical or occupational therapy to help with the numbness in your hands. - We are referring you to a recreational counselor for help with a diet plan. - A referral has been made to dermatology (a skin doctor) to check the spot on your foot and for a full skin exam. - An ultrasound of your thyroid has been ordered to look at a small lump that was felt in your neck. - Please go to the lab to have your thyroid blood levels re-checked. - You do not need to be fasting for this test. - Continue taking your multivitamin every day to help with your energy, memory, hair, and skin. - Keep your scheduled mammogram appointment. - Follow up in the clinic in about six months to review your thyroid tests.
--- OUTSIDE RECORDS SUMMARY | 2025-08-01 17:42 | XMS_ITS | Clinical Summary ---
Author Organization [facility] Address [address] [place] [address] Phone Care Team Providers Care Improvement Engineer Name Role Phone Jesús Knott MD Primary Care Provider [phone] Allergies Active Allergy Reactions Criticality Noted Date Comments Other Hives 03/25/2017 [place] powder Medications diclofenac (VOLTAREN) 1 % topical [...] each day. 90 each 3 07/12/2024 Active Active Problems Problem Noted Date Diagnosed [...] bleeding 01/11/2017 Overweight 05/08/2016 Hypothyroidism 05/08/2016 Immunizations Immunization Administration Dates Next Due Tdap Tetanus diptheria [...] care for your loved ones. For example, director of early childhood or elderly care for an older adult? [...] Date Recorded What is your living situation? Unrecognized valu e 07/09/2024 Comments No Sex and Gender Information Value [...] Health Maintenance Due Date Last Done Comments Colorectal Cancer Screening: Colonoscopy 1976 Hepatitis B Vaccines (1 of 3 - 19+ 3-dose series) 1995 HIV Screening 08/10/2022 Hepatitis C Screening 08/10/2022 Depression Screening 09/01/2024 07/09/2024 DTaP,Tdap,and Td Vaccines (2 - Td or Tdap) 02/08/2025 02/08/2015 COVID-19 Vaccine (4 - season) 2025 08/22/2021, 11/09/2020, 10/12/2020 Influenza Vaccine (#1) 2025 Social Influencers of Health Screening 07/09/2025 07/09/2024 Cervical Cancer Screening: Pap Smear 01/29/2026 01/29/2023 Breast Cancer Screening 07/28/2026 07/28/20 24, 06/30/2023, 06/13/2022, Additional history exists Cholesterol Screening (Lipid Panel) 07/06/2029 07/06/2024, 09/04/2023 RSV Immunization Adult Patients (1 - 1-dose 75+ series) 2051 HIB Vaccines Aged Out No longer eligi [...] Signed Date: 07/28/2024 11:43 ET Workstation ID: [id number] Transcribed By: Self Edit Transcribed Date: 07/28/2024 11:36 ET Narrative 07/28/2024 11:43 AM EST EXAM: SCREENING MAMMOGRAPHY, BILATERAL HISTORY: SCREENING. Mother diagnosed with breast cancer age 40 COMPARISON: 06/30/2023, 06/13/2022, 06/06/2021, 05/22/2020 TECHNIQUE: Synthesized CC and MLO projections of each breast. Tomosynthesis of each breast in the CC and MLO projections. ADDITIONAL IMAGING: None Computer-aided detection was employed with the iCAD [employer] AI 3-D. TISSUE DENSITY: There are scattered [...] Computer-aided detection was employed with the [employer] AI 3-D. TISSUE DENSITY: There are scattered [...] Signed Date: 07/28/2024 11:43 ET Workstation ID: [id number] Transcribed By: Self Edit Transcribed Date: 07/28/2024 11:36 ET us Self Referral Sppl IMG BI PROCEDURES Final Resul t * Lipid panel with reflex to direct LDL (07/06/2024 11:04 AM EST) Cholesterol 151 0 - 200 mg/dL LAB CHEMISTRY METHOD 07/06/2024 3:23 PM EST [facility] Triglycerides 59 0 - 150 mg/dL LAB CHEMISTRY METHOD 07/06/2024 3:23 PM EST [facility] HDL 75 >=40 mg/dL LAB CHEMISTRY METHOD 07/06/2024 3:23 PM EST [facility] LDL Calculated 64 0 - 100 mg/dL LAB CHEMISTRY METHOD 07/06/2024 3:23 PM [facility] VLDL Cholesterol Nik 11.8 mg/dL LAB CHEMISTRY METHOD 07/06/2024 3:23 PM EST [facility] Non HDL Chol. (LDL+VLDL) 76 <145 mg/dL LAB CHEMISTRY METHOD 07/06/2024 3:23 PM [facility] Chol/HDL Ratio 2.0 0.0 - 4.4 LAB CHEMISTRY METHOD 07/06/2024 3:23 PM [facility] Blood Venous blood specimen / Unknown Venipuncture / Unknown 07/06/2024 11:04 AM EST 07/06/2024 11:04 AM EST [facility] BLOOD ORDERABLES Fin al Result [facility] [address] [place] [address], * Pap Smear (01/29/2023) Pap smear no interpretation , abstracted Historical Provider HEALTH MAINTENANCE Final Result from Last 3 Months or Most Recently Relevant to Health Maintenance Insurance [facility] Care Teams Improvement Engineer Relationship Specialty Start Date End Date Jesús Knott MD [address] [place] [address] PCP - General 03/18/07
== END 2025-08-01 15:37 | disposition home or self-care (01) ==
LOC: HO.HMCSH 14:16
PROVIDERS: PCP Physician Assistant Medical; Visit Provider Physician Assistant Medical
DX: Z00.00 Encounter for general adult medical examination without abnormal findings (principal); M11.869 Other specified crystal arthropathies, unspecified knee; G56.00 Carpal tunnel syndrome, unspecified upper limb; E03.9 Hypothyroidism, unspecified; E66.811 Obesity, class 1; E04.1 Nontoxic single thyroid nodule; R79.89 Other specified abnormal findings of blood chemistry; D72.819 Decreased white blood cell count, unspecified; Z23 Encounter for immunization

== ENCOUNTER → 2025-08-01 14:16 | Outpatient (BNVA) | payer BC, SELFPAY | PROVIDERS: PCP Physician Assistant Medical; Visit Provider Physician Assistant Medical | DX: Z00.00 Encounter for general adult medical examination without abnormal findings (principal); E03.9 Hypothyroidism, unspecified; M11.869 Other specified crystal arthropathies, unspecified knee; G56.00 Carpal tunnel syndrome, unspecified upper limb; E66.811 Obesity, class 1; E04.1 Nontoxic single thyroid nodule; R79.89 Other specified abnormal findings of blood chemistry; D72.819 Decreased white blood cell count, unspecified; Z28.21 Immunization not carried out because of patient refusal; L98.9 Disorder of the skin and subcutaneous tissue, unspecified; L81.2 Freckles | CPT/HCPCS: 96127 ==